=== PATIENT | male | born 1955 | race Caucasian/White ===

== ENCOUNTER 2017-01-24 10:57 | Inpatient (IN) | payer MEDICAID ==
[~2017-01-24] VITALS: Ht 162.6 cm; Wt 61.2 kg
[2017-01-24 11:19] VITALS: BP 149/79
[2017-01-24] MEDS ORDERED: ACETAMINOPHEN EXTRA STRENGTH 500 MG TAB PO ONE (11:55)
--- NOTE | 2017-01-24 12:20 | NUR ---
61/M BIB FAMILY c/o dysuria, pain to aleman insert site x20 days . PT STATED HAS Fever , chills x2 days. hx OF bph, dm, htn, BLIND. PT DENIES N/V/D; SKIN IS PINK/WARM/DRY; AAOX4 WITH EVEN AND STEADY GAIT; LUNGS CLEAR BL; HR EVEN AND REGULAR; PT DENIES ANY FEVER, CP, SOB, OR COUGH AT THIS TIME; PATIENT STATES PAIN OF 5/10 AT THIS TIME; PATIENT POSITIONED FOR COMFORT; HOB ELEVATED; BEDRAILS UP X2; BED DOWN. ER MD MADE AWARE OF PT STATUS.
[2017-01-24] MEDS ORDERED: NACL 0.9% 2,000 ML IV ONE (12:30)
[2017-01-24] MEDS ORDERED: cefTRIAXone 1,000 MG VIAL ONE (13:34)
[2017-01-24] MEDS ORDERED: NACL 0.9% 1,000 ML IV ONE (13:40)
--- NOTE | 2017-01-24 14:00 | NUR ---
AT 1400 REMOVED FOEY CATH NO16 & REPLACED POTTER CATH NEW ONE NO16 AT 1404
[2017-01-24] MEDS: NACL 0.9% 1,000 ML IV SCH (14:55)
--- NOTE | 2017-01-24 15:13 | NUR ---
GAVE REPORT TO JOSUE GONZALEZ
--- NOTE | 2017-01-24 15:13 | NUR ---
Patient will be admitted to care of DR ZEPEDA. Admited to TELE. Will go to [id number]. Belongings list completed. Report to JOSUE GONZALEZ.
--- NOTE | 2017-01-24 15:30 | NUR ---
Shirin price in [facility] - 01/24/17 at 1542 by MED1 CHANGE TO [place] 122B
--- NOTE | 2017-01-24 15:30 | NUR ---
CHANGE TO ROOM 122A
--- NOTE | 2017-01-24 15:30 | NUR ---
Shirin price in [facility] - 01/24/17 at 1544 by MED1 GONZALO Lerma
[2017-01-24 15:45] VITALS: BP 120/58
--- NOTE | 2017-01-24 15:45 | NUR ---
PT ARRIVED ON UNIT VIA GURNEY. PT IS AAOX4 AND SHOWS NO S/S OF DISTRESS. PT ON TELE MONITORING. PT AMB TO BED WITH STEADY GAIT. PT IS LEGALLY BLIND AND USES A CANE. SKIN IS INTACT. IV NOTED AT R AC 20 GAUGE PATENT AND INTACT. PT STATES NO PAIN. BED IS LOWERED, FLAT, AND WITH CALL LIGHT WITHIN REACH. WILL CONTINUE TO MONITOR.
[2017-01-24 16:27] VITALS: BP 120/58
[2017-01-24] MEDS ORDERED: LEVOFLOXACIN 750 MG/D5W PREMIX 150 ML IV SCH (17:25)
[2017-01-24] MEDS ORDERED: DEXTROSE 50% 50 ML SYR IVP PRN (17:30)
--- NOTE | 2017-01-24 17:30 | NUR ---
PT IS GETTING A CXR DONE AT BEDSIDE. PT SHOWS NO S/S OF DISTRESS. WILL CONTINUE TO MONITOR.
--- NOTE | 2017-01-24 17:50 | NUR ---
PT BEING SEEN BY US TECH. PT SHOWS NO S/S OF DISTRESS. WILL CONTINUE TO MONITOR.
--- NOTE | 2017-01-24 19:15 | NUR ---
GAVE REPORT TO NIGHT NURSE. PT ENDORSED IN STABLE CONDITION.
--- NOTE | 2017-01-24 19:16 | NUR ---
RECEIVED REPORT FROM DAY RN FOR CONTINUITY OF CARE. PATIENT IS A&OX4, DISCUSSED PLAN OF CARE WITH PATIENT AND FAMILY MEMBERS AT BEDSIDE, VERBALIZED UNDERSTANDING. SHIFT ASSESSMENT DONE, VS TAKEN, TEMP NOTED AT 100.7, WILL ADMINISTER TYLENOL. NO S/S OF RESPIRATORY DISTRESS NOTED ON ROOM AIR. PATIENT DENIES PAIN. IV TO RT FA 20 GAUGE PATENT AND INFUSING FLUIDS WELL. POTTER CATHETER IN PLACE. SKIN INTACT. PATIENT IS LEGALLY BLIND. SAFETY/FALL PRECAUTIONS ENFORCED. CALL LIGHT WITHIN REACH. WILL CONTINUE TO MONITOR.
[2017-01-24 20:00] VITALS: BP 140/71
[2017-01-24] MEDS: ACETAMINOPHEN EXTRA STRENGTH 500 MG TAB PO PRN (20:09)
--- NOTE | 2017-01-24 20:09 | NUR ---
TEMP 100.7, ADMINISTERED TYLENOL PER MD ORDER AND IMPLEMENTED COOLING MEASURES.
[2017-01-24] MEDS: DOCUSATE SODIUM 100 MG GELCAP PO SCH (20:10)
[2017-01-24] MEDS: BLOOD GLUCOSE MONITORING 1 DEV DEV FS SCH (20:19)
[2017-01-24] MEDS: INSULIN LISPRO SLIDING SCALE 100 UNITS/ML VIAL SUBQ PRN (21:21)
--- NOTE | 2017-01-24 21:21 | NUR ---
BLOOD SUGAR 180, ADMINISTERED INSULIN PER MD ORDER. CALL LIGHT WITHIN REACH.
--- NOTE | 2017-01-24 23:44 | NUR ---
VS CHECKED, STABLE. CHANGED PT LINENS AND GOWN. CALL LIGHT WITHIN REACH. WILL CONTINUE TO MONITOR.
[2017-01-25] VITALS: BP 124/67
--- NOTE | 2017-01-25 01:56 | NUR ---
PT IS SLEEPING, NO S/S OF DISTRESS OR DISCOMFORT NOTED. WILL CONTINUE TO MONITOR.
[2017-01-25] MEDS: NACL 0.9% 1,000 ML IV SCH ×3 (02:35→21:12)
[2017-01-25 04:00] VITALS: BP 148/78
--- NOTE | 2017-01-25 04:07 | NUR ---
VS TAKEN, STABLE. EMPTIED POTTER CATH BAG 1300 ML DARK YELLOW URINE. WILL CONTINUE TO MONITOR.
[2017-01-25] MEDS: BLOOD GLUCOSE MONITORING 1 DEV DEV FS SCH ×4 (06:25→20:18)
[2017-01-25] MEDS: ACETAMINOPHEN EXTRA STRENGTH 500 MG TAB PO PRN (06:36)
--- NOTE | 2017-01-25 06:36 | NUR ---
PATIENTS TEMPERATURE TAKEN 101.2, ADMINISTERED, TYLENOL PER MD ORDER. COOLING MEASURES IMPLEMENTED.
--- NOTE | 2017-01-25 07:30 | NUR ---
ENDORSED PATIENT TO DAY RN FOR CONTINUITY OF CARE, PATIENT IS IN STABLE CONDITION.
--- NOTE | 2017-01-25 07:31 | NUR ---
REPORT RECEIVED FROM CAMP PROGRAM DIRECTOR NURSE, PT SLEEPING QUIETLY, RESP EVEN UNLABORED IN NAD, SKIN COLOR WNL, DENIES PAIN OR DISCOMFORT, NO IMMEDIATE NEEDS AT THIS TIME, IV INFUSING WELL SITE CLEAR AT RIGHT AC, CALL ZAMBRANO WITHIN REACH, SAFETY MEASURES IN PLACE, WILL CONTINUE TO MONITOR.
[2017-01-25 08:00] VITALS: BP 136/73
--- NOTE | 2017-01-25 08:06 | NUR ---
PATIENT HAS BEEN SCREENED AND CATEGORIZED HIGH NUTRITION RISK. PATIENT WILL BE SEEN WITHIN 1-2 DAYS OF ADMISSION. 01/25/17-01/26/[address]
[2017-01-25] MEDS: DOCUSATE SODIUM 100 MG GELCAP PO SCH ×2 (08:30→20:18)
[2017-01-25] MEDS ORDERED: PIPER/TAZO 3.375GM/D5W PREMIX 50 ML IV SCH (09:00)
[2017-01-25] MEDS ORDERED: BENZOCAINE/MENTHOL 1 LOZ MM PRN (10:10)
--- NOTE | 2017-01-25 10:27 | NUR ---
PT RESTING QUIETLY, RESP EVEN UNLABORED ON ROOM AIR IN NAD, NO C/O PAIN OR DISCOMFORT, VOICES NO IMMEDIATE NEEDS, IVF INFUSING WELL SITE CLEAR, POTTER DRAINING DARK YELLOW URINE, CALL ZAMBRANO IN HAND, SAFETY MEASURES IN PLACE, WILL CONTINUE TO MONITOR
--- NOTE | 2017-01-25 11:52 | NUR ---
01/25/17 RD INITIAL ASSESSMENT COMPLETED PLEASE REFER TO NUTRITION ASSESSMENT UNDER CARE ACTIVITY FOR ESTIMATED NUTRITIONAL NEEDS. RD RECOMMENDATIONS: 1. WHEN MEDICALLY FEASIBLE, INITIATE PO DIET TO START ON CLEAR LIQUIDS AND ADVANCE TOLERATED TO 75G CCHO/MEAL DIET 2. RD WILL F/U 3-5 DAYS; MODERATE. ERNIE CHIU RD
[2017-01-25 12:00] VITALS: BP 133/66
--- NOTE | 2017-01-25 14:02 | NUR ---
DR WHEATLEY AT BEDSIDE FOR EVAL, ATTEMPTED TO GET MEDICATION LIST FROM DAUGHTER MYRA, DAUGHTER NOT ABLE TO PROVIDE FULL LIST AND DOSE OF MEDS AT THIS TIME ON THE PHONE, ASKED PT TO BRING IN HOME MEDICATIONS WHEN SHE VISITS THIS AFTERNOON. PT RESTING QUIETLY IN NAD, DENIES ANY PAIN OR DISCOMFORT, RESP EVEN UNLABORED, SKIN WARM DRY, POTTER DRAINING WELL, CALL ZAMBRANO WITHIN REACH, SAFETY MEASURES IN PLACE, WILL CONTINUE TO MONITOR
[2017-01-25 16:00] VITALS: BP 141/69
--- NOTE | 2017-01-25 18:00 | NUR ---
UROLOGY MD TO BEDSIDE FOR EVAL, PT OK TO START PO DIET, CCHO DIET ORDERED BY DR WHEATLEY, PT MADE AWARE OF DIET CHANGE, DIETARY CALLED FOR LATE DINNER TRAY. PT REMAINS COMFORTABLE, RESP EVEN UNLABORED IN NAD ON ROOM AIR, IVF INFUSING WELL SITE CLEAR, POTTER DRAINING, CALL ZAMBRANO WITHIN REACH, SAFETY MEASURES IN PLACE, WILL CONTINUE TO MONITOR
--- NOTE | 2017-01-25 19:30 | NUR ---
REPORT GIVEN TO CLICKING MACHINE OPERATOR, PT IN STABLE CONDITION
--- NOTE | 2017-01-25 19:30 | NUR ---
RECEIVED REPORT FROM DAY RN AT BEDSIDE, PATIENT RESTING IN BED, AAO X4 ON ROOM AIR, NO SOB OR SIGN OF DISTRESS. PATIENT IS LEGALLY BLIND, SAFETY MEASURES CHECKED, IV TO RIGHT AC PATENT AND INTACT WITH IVF INFUSING WELL. POTTER PRESENT WITH LIGHT ANDREW URINE. PATIENT BEING ASSISTED TO EAT BY FAMILY MEMBERS. SKIN INTACT. DISCUSSED PLAN OF CARE WITH PATIENT, PATIENT VERBALIZED UNDERSTANDING, CALL LIGHT WITHIN REACH. WILL CONTINUE TO MONITOR.
[2017-01-25 20:00] VITALS: BP 140/77
[2017-01-25] MEDS: MORPHINE SULFATE 2 MG/ML SYR IVP PRN (20:18)
[2017-01-25] MEDS: PIPER/TAZO 3.375GM/D5W PREMIX 50 ML IV SCH (20:19)
--- NOTE | 2017-01-25 20:30 | NUR ---
PM MEDS ADMINISTERED, PATIENT TOLERATED WELL, PT C/O LOWER ABDOMINAL PAIN, ADMINISTERED MORPHINE PER MD ORDER, CALL LIGHT WITHIN REACH. WILL CONTINUE TO MONITOR.
[2017-01-25] MEDS: INSULIN LISPRO SLIDING SCALE 100 UNITS/ML VIAL SUBQ PRN (21:13)
--- NOTE | 2017-01-25 22:30 | NUR ---
PATIENT SLEEPING, NO SOB OR SIGN OF DISTRESS AT THIS TIME, CALL LIGHT WITHIN REACH. WILL CONTINUE TO MONITOR.
[2017-01-26] VITALS: BP 120/66
--- NOTE | 2017-01-26 00:20 | NUR ---
VITAL SIGNS STABLE, NO SOB OR SIGN OF DISTRESS AT THIS TIME, CALL LIGHT WITHIN REACH. WILL CONTINUE TO MONITOR.
--- NOTE | 2017-01-26 02:20 | NUR ---
PATIENT SLEEPING, NO SOB OR SIGN OF DISTRESS AT THIS TIME, CALL LIGHT WITHIN REACH. WILL CONTINUE TO MONITOR.
[2017-01-26 04:00] VITALS: BP 132/71
--- NOTE | 2017-01-26 04:00 | NUR ---
VIAL SIGNS STABLE, NO SOB OR SIGN OF DISTRESS, CALL LIGHT WITHIN REACH. WILL CONTINUE TO MONITOR.
[2017-01-26] MEDS ORDERED: ASPIRIN81 M1 PO (04:40)
[2017-01-26] MEDS ORDERED: AMLODIPINE10 M1 PO (04:40)
[2017-01-26] MEDS ORDERED: LIPITOR80 MG PO (04:40)
[2017-01-26] MEDS ORDERED: VITAMIN D50000 I4 PO (04:40)
[2017-01-26] MEDS ORDERED: FINASTERIDE5 M1 PO (04:40)
[2017-01-26] MEDS ORDERED: TAMSULOSIN HCL0.4 MG PO (04:40)
[2017-01-26] MEDS ORDERED: MACROBID100 M1 PO (04:40)
[2017-01-26] MEDS ORDERED: GLUCOTROL5 MG PO (04:40)
[2017-01-26] MEDS: NACL 0.9% 1,000 ML IV SCH ×3 (05:11→21:24)
[2017-01-26] MEDS: PIPER/TAZO 3.375GM/D5W PREMIX 50 ML IV SCH ×3 (05:11→21:03)
[2017-01-26] MEDS: BLOOD GLUCOSE MONITORING 1 DEV DEV FS SCH ×4 (06:35→21:06)
--- NOTE | 2017-01-26 07:27 | NUR ---
ENDORSED PATIENT TO DAY RN AT BEDSIDE, PATIENT IN STABLE CONDITION
--- NOTE | 2017-01-26 07:29 | NUR ---
RECEIVED REPORT FROM JOSUE DURAND. PT IS SLEEPING IN BED, BUT EASILY AWAKEN, PT IS A/OX4, PT IS BLIND, BOTH EYES, SKIN IS INTACT, IV IS ON THE LEFT AC, PATENT, INTACT, FLUSHING WELL, INITIAL ASSESSMENT DONE, PT HAS POTTER CATHETER IS IN PLACE, NO S/S OF RESPIRATORY DISTRESS OR DISCOMFORT NOTED, DISCUSSED PLAN OF CARE WITH PT, PT VERBALIZED UNDERSTANDING, CALL LIGHT IS WITHIN REACH, WILL CONTINUE TO MONITOR.
[2017-01-26 08:00] VITALS: BP 148/79
[2017-01-26] MEDS: MORPHINE SULFATE 2 MG/ML SYR IVP PRN (09:48)
[2017-01-26] MEDS: DOCUSATE SODIUM 100 MG GELCAP PO SCH ×2 (09:48→20:51)
[2017-01-26] MEDS: INSULIN LISPRO SLIDING SCALE 100 UNITS/ML VIAL SUBQ PRN ×3 (11:59→21:07)
[2017-01-26 12:00] VITALS: BP 140/73
[2017-01-26] MEDS ORDERED: PHENAZOPYRIDINE 100 MG TAB PO SCH (12:00)
[2017-01-26 16:00] VITALS: BP 148/76
--- NOTE | 2017-01-26 19:30 | NUR ---
Patient's Plan of Care was discussed and reviewed with MEDICAL INSTRUMENT TECHNICIAN: CHICHI
--- NOTE | 2017-01-26 19:35 | NUR ---
ENDORSED PT TO LVN. JORGE LUIS FOR CONTINUITY OF CARE. PT STABLE AT THIS TIME, IS AT BEDSIDE.
--- NOTE | 2017-01-26 19:36 | NUR ---
RECD. RESTING IN BED, AWAKE, A/OX4. RESPIRATION EVEN AND UNLABORED. IV OF NS AT 140 ML/HR INFUSING, RIGHT AC G 20. LEGALLY BLIND, BUT ABLE TO USE CALL LIGHT, INSTRUCTED TO CALL NURSE WHEN NEEDING HELP. PLAN OF CARE FOR THE SHIFT DISCUSSED. VERBALIZED UNDERSTANDING. F/C PATENT DRAINING YELLOWISH, PINK URINE. ON BILATERAL LEG SEQUENTIALS. SAFETY MEASURES ENFORCED. DENIES PAIN 0/10.
[2017-01-26] MEDS: PHENAZOPYRIDINE 100 MG TAB PO SCH (20:50)
--- NOTE | 2017-01-26 21:00 | NUR ---
REFUSED SNACK FOR THE NIGHT.
[2017-01-27] VITALS: BP 135/72
[2017-01-27] MEDS: MORPHINE SULFATE 2 MG/ML SYR IVP PRN (04:33)
[2017-01-27] MEDS: NACL 0.9% 1,000 ML IV SCH ×2 (04:33→11:42)
[2017-01-27] MEDS: PIPER/TAZO 3.375GM/D5W PREMIX 50 ML IV SCH ×2 (06:00→12:34)
[2017-01-27] MEDS: BLOOD GLUCOSE MONITORING 1 DEV DEV FS SCH ×3 (06:56→17:17)
[2017-01-27] MEDS: INSULIN LISPRO SLIDING SCALE 100 UNITS/ML VIAL SUBQ PRN ×3 (06:58→17:19)
--- NOTE | 2017-01-27 07:00 | NUR ---
CONDITION REMAIN STABLE. SAFETY MAINTAINED DURING SHIFT. WILL ENDORSE TO AM NURSE FOR CONTINUITY OF CARE.
--- NOTE | 2017-01-27 07:30 | NUR ---
RECEIVED REPORT FROM NIGHT NURSE. PT AOX4, GERMAN SPEAKING, ABLE TO VERBALIZE NEEDS, PT LEGALLY BLIND. NO CP, SOB OR S/S OF ACUTE DISTRESS. PT DENIES PAIN AT THIS TIME, STATES DYSURIA, REFUSING PAIN MEDS AT THIS TIME. POTTER CATH IN PLACE, DRAINING CLEAR ORANGE URINE. INITIAL ASSESSMENT COMPLETED. IV ACCESS ASYMPTOMATIC, PATENT AND INTACT. IVF INFUSING WELL. DISCUSSED AND REVIEWED PLAN OF CARE WITH PT. PT VERBALIZES UNDERSTANDING. SAFETY MEASURES ENSURED. CALL LIGHT WITHIN REACH. WILL CONTINUE TO MONITOR.
[2017-01-27 08:00] VITALS: BP 141/78
[2017-01-27] MEDS: DOCUSATE SODIUM 100 MG GELCAP PO SCH (09:31)
[2017-01-27] MEDS: PHENAZOPYRIDINE 100 MG TAB PO SCH (09:31)
--- NOTE | 2017-01-27 09:33 | NUR ---
MEDICATIONS ADMINISTERED WITH EDUCATION, PT VERBALIZES UNDERSTANDING. PT TOLERATED MEDS WELL. IVF INFUSING WELL. PHYSICAL THERAPY WITH PT AT THIS TIME, PT AMBULATING WELL WITH CANE AND GAIT BELT, MINIMAL ASSISTANCE WITH 1 PERSON ASSIST AND 1 PERSON STANDBY. SAFETY MEASURES ENSURED.
--- NOTE | 2017-01-27 12:34 | NUR ---
MEDICATION ADMINISTERED WITH EDUCATION, PT VERBALIZES UNDERSTANDING. IVF INFUSING WELL. SAFETY MEASURES ENSURED. CALL LIGHT WITHIN REACH. ALL NEEDS MET. WILL CONTINUE TO MONITOR.
[2017-01-27 16:00] VITALS: BP 146/86
[2017-01-27] MEDS ORDERED: PHENAZOPYRIDIN100 M1 PO (16:23)
[2017-01-27] MEDS ORDERED: FLORASTOR250 MG PO (16:23)
[2017-01-27] MEDS ORDERED: BLOOD LANCETS1 EACH MC (16:23)
[2017-01-27] MEDS ORDERED: BLOOD GLUCOSE1 EACH FS (16:23)
[2017-01-27] MEDS ORDERED: BLOOD GLUCOSE MC (16:23)
[2017-01-27] MEDS ORDERED: HUMALOG SL100 UNITS/ SUBQ (16:23)
[2017-01-27] MEDS ORDERED: GLUCOTROL XL10 M1 PO (16:23)
[2017-01-27] MEDS ORDERED: CIPRO500 MG PO (16:23)
--- NOTE | 2017-01-27 17:19 | NUR ---
MEDICATION ADMINISTERED WITH EDUCATION, PT VERBALIZES UNDERSTANDING. IVF INFUSING WELL. SAFETY MEASURES ENSURED. CALL LIGHT WITHIN REACH. ALL NEEDS MET. WILL CONTINUE TO MONITOR.
--- NOTE | 2017-01-27 17:53 | NUR ---
PT'S AND DAUGHTER AT BEDSIDE. DISCUSSED AND REVIEWED DISCHARGE INSTRUCTIONS WITH PT. PT VERBALIZES UNDERSTANDING. IV ACCESS REMOVED, CANNULA INTACT. PT TOLERATED WELL. POTTER CATH LEFT IN PLACE, PER MD ORDERS. POTTER EMPTIED, DRAINING CLEAR YELLOW URINE. CONDITION STABLE. PT'S DAUGHTER ASSISTING PT WITH DINNER. BELONGINGS CHECKED. SAFETY MEASURES ENSURED.
--- NOTE | 2017-01-27 18:23 | NUR ---
PT DISCHARGED, AMBULATING WITH CANE AND PT'S DAUGHTER ASSISTING PER PT'S REQUEST, REFUSES TO USE WHEELCHAIR. STEADY GAIT NOTED. CONDITION STABLE.
== END 2017-01-27 18:23 | disposition home or self-care (01) | DRG 720 ==
LOC: MED 10:57 → MTU 14:54
PROVIDERS: ADMIT Family Medicine; ATTEND Family Medicine
DX: A41.89 Other specified sepsis (principal); N17.0 Acute kidney failure with tubular necrosis; E43 Unspecified severe protein-calorie malnutrition; N39.0 Urinary tract infection, site not specified; R65.20 Severe sepsis without septic shock; I10 Essential (primary) hypertension; N40.1 Benign prostatic hyperplasia with lower urinary tract symptoms; E78.5 Hyperlipidemia, unspecified; M62.50 Muscle wasting and atrophy, not elsewhere classified, unspecified site; R74.0 Nonspecific elevation of levels of transaminase and lactic acid dehydrogenase [LDH]; H54.0 Blindness, both eyes; E11.65 Type 2 diabetes mellitus with hyperglycemia; B96.5 Pseudomonas (aeruginosa) (mallei) (pseudomallei) as the cause of diseases classified elsewhere; N40.0 Benign prostatic hyperplasia without lower urinary tract symptoms; E78.00 Pure hypercholesterolemia, unspecified; N12 Tubulo-interstitial nephritis, not specified as acute or chronic; Z56.0 Unemployment, unspecified; Z68.23 Body mass index [BMI] 23.0-23.9, adult

== ENCOUNTER 2021-11-27 17:21 | Inpatient (IN) | payer MEDICAID, SELFPAY ==
[~2021-11-27] VITALS: Ht 175.3 cm; Wt 72.6 kg
[~2021-11-27 17:21] MED LIST: AMLO10TA89 PO; ASPI-1822 PO; BLOO1EAC85 MC; BLOO1STR56 FS; CIPR500T4 PO; ERGO500028 PO; FINA5TAB5 PO; FLOR250 PO; GLIP10TE PO; HUMSLIDE SUBQ; LANC-947 MC; LIP80 PO; PHEN-1901 PO; TAMS0.4C97 PO
--- NOTE | 2021-11-27 17:22 | NUR ---
Óscar HAWKINS via gurney to bed 09.
[2021-11-27 17:25] VITALS: BP 188/72
--- NOTE | 2021-11-27 17:42 | NUR ---
RECEIVED FROM CAREGIVER. PHONE NUMBER PROVIDED. JOHNNIE [phone]
--- NOTE | 2021-11-27 17:46 | NUR ---
XRAY AT BEDSIDE
--- NOTE | 2021-11-27 18:00 | NUR ---
IN AND OUT CATHETER PROCEDURE PERFORMED TO COLLECT URINE
--- NOTE | 2021-11-27 18:34 | NUR ---
66 Y/O MALE PATIENT ROSS PRESENTS TO ED WITH C/O ALOC X 2 DAYS. EMS REPORTS PT MISSED DIALYSIS X 1 MONTH [facility] IS NOT DOING ANYTHING FOR HIM TO FEEL BETTER. PT IS A&O X 3. RESPIRATIONS ARE EVEN AND UNLABORED, UNABLE TO ASSESS GAIT, BS 107, 18 G R AC. PMEDHX: RENAL FAILURE, HTN, HIGH CHOLESTEROL NKDA
[2021-11-27 18:44] LABS: BASOPHILS % (AUTO) 0.4 % (0.0-2.0); EOSINOPHILS # (AUTO) 0.1 K/uL (0-0.4); HEMOGLOBIN 8.7 g/dL (12.0-18.0); LYMPHOCYTES # (AUTO) 0.7 K/uL (2.0-11.5); LYMPHOCYTES % (AUTO) 7.7 % (20.5-51.1); MEAN CORPUSCULAR HEMOGLOBIN 29 pg (27-31); MEAN CORPUSCULAR HGB CONC 32 g/dL (33-37); MEAN CORPUSCULAR VOLUME 89.2 fL (80-94); MONOCYTES # (AUTO) 0.6 K/uL (0.8-1.0); MONOCYTES % (AUTO) 6.6 % (1.7-9.3); NEUTROPHILS # (AUTO) 8.2 K/uL (1.8-7.7); NEUTROPHILS % (AUTO) 84.3 % (42.2-75.2); PLATELET COUNT (AUTO) 160 K/uL (140-450); RED BLOOD CELL COUNT(AUTO) 3.03 MIL/uL (4.20-6.10); RED CELL DISTRIBUTION WIDTH 14.3 % (11.6-13.7); WHITE BLOOD COUNT (AUTO) 9.8 K/uL (4.8-10.8)
--- NOTE | 2021-11-27 18:49 | NUR ---
PATIENT TAKEN TO CT VIA CEDRICK
[2021-11-27 19:00] LABS: ANION GAP 31.2 (8-16)
[2021-11-27 19:07] LABS: POTASSIUM 6.9 mmol/L (3.5-5.1)
[2021-11-27 19:08] LABS: CARBON DIOXIDE 9.7 mmol/L (21-32)
[2021-11-27 19:10] LABS: APPEARANCE,URINE CLOUDY (CLEAR); BILIRUBIN,URINE NEGATIVE (NEGATIVE); BLOOD, URINE 3+ (NEGATIVE); COLOR,URINE YELLOW (YELLOW); NITRITE, URINE NEGATIVE (NEGATIVE); UGLUCOSE NEGATIVE (NEGATIVE)
[2021-11-27] MEDS ORDERED: CALCIUM GLUC 1 GM/50 mL NS BAG 50 ML IV ONE (19:10)
[2021-11-27] MEDS ORDERED: DEXTROSE 50% 50 ML SYR IVP ONE (19:10)
[2021-11-27] MEDS ORDERED: SODIUM ZIRCONIUM CYCLOSILICATE 10 GM POWD.PACK PO ONE (19:10)
[2021-11-27] MEDS ORDERED: INSULIN REGULAR, HUMAN 100 UNIT/ML VIAL IVP ONE (19:10)
[2021-11-27 19:11] LABS: LEUKOCYTE ESTERASE ,URINE 3+ (NEGATIVE)
[2021-11-27 19:11] LABS: ALBUMIN 2.9 g/dL (3.4-5.0); ASPARTATE AMINOTRANSFERASE 17 U/L (15-37); BILIRUBIN,DIRECT 0.1 mg/dL (0.0-0.3); LIPASE 283 U/L (73-393); TOTAL BILIRUBIN 0.5 mg/dL (0.0-1.0)
--- NOTE | 2021-11-27 19:11 | NUR ---
CRITICAL LAB REPORT RECEIVED FROM ADARSH STATING: BUN 244 CREATININE 24.16 MACHINE UNABLE TO REGISTER VALUES INTO MACHINE D/T VALUES BEING OVER-LIMIT.
[2021-11-27 19:12] LABS: ACETAMINOPHEN < 0.5 ug/ml (10-30); SALICYLATE < 2.8 mg/dL (2.8-20.0)
--- NOTE | 2021-11-27 19:16 | NUR ---
CRTICAL LAB REPORT RECIEVED TROPONIN 0.128 ER AWARE
--- NOTE | 2021-11-27 19:18 | NUR ---
GARY ROWELL CALLED FOR UPDATE [phone] NOT CURRENTLY ON CONTACT LIST
[2021-11-27 19:21] LABS: BARBITURATE, URINE NEGATIVE ng/ml (NEG <=200); BENZODIAZEPINE, URINE NEGATIVE ng/mL (NEG <=200); CANNABINOID, URINE NEGATIVE ng/mL (NEG <=50); COCAINE, URINE NEGATIVE ng/mL (NEG <=300); OPIATE, URINE NEGATIVE ng/mL (NEG <=2000); PHENCYCLIDINE SCREEN,URINE NEGATIVE ng/mL (NEG <=25)
[2021-11-27 19:23] LABS: RBC,URINE TOO NUMEROUS TO COUN /HPF (0-5)
[2021-11-27 19:24] LABS: WBC,URINE TOO MANY TO COUNT /HPF (0-5)
--- NOTE | 2021-11-27 19:25 | NUR ---
HANDOFF REPORT GIVEN TO KAREN RN
[2021-11-27 19:29] LABS: CREATININE 20.1 mg/dL (0.6-1.3)
--- NOTE | 2021-11-27 20:19 | NUR ---
RECEIVED CALL FROM MD MURPHY AND GAVE AN ORDER TO DO A STAT DIALYSIS.
--- NOTE | 2021-11-27 20:38 | NUR ---
CALLED PATIENT'S JULIANNE FOR VERBAL CONSENT FOR STAT DIALYSIS ON PT. CHARGE QUINTON SALAS AWARE AND HEARD VERBAL CONSENT
--- NOTE | 2021-11-27 20:57 | NUR ---
Patient will be admitted to care of Jak PARIS. Admited to telemetry. Will go to room 113. Belongings list completed. Report to Altaf REDMOND.
[2021-11-27 21:27] VITALS: BP 159/73
[2021-11-27] MEDS ORDERED: DEXTROSE 50% 50 ML SYR IVP PRN (22:10)
--- NOTE | 2021-11-27 22:22 | NUR ---
Admitted from ED VIA GURNEY with chief complaint of ALOC. HEAD TO TOE ASSESSMENT DONE WITH JOSUE NOE. VSS. ON ROOM AIR WITH NO APPARENT S/SX OF ACUTE DISTRESS. PATIENT IS ON BEDREST. PATIENT IS INCONTINENT. PATIENT HAS AN IV TO THE RAC 18G SL. MRSA SWAB COLLECTED. PATIENT IS PUI PENDING PCR. PATIENT'S KELVIN IS NEGATIVE AND FULLY VACCINATED WITH MODERNA. PATIENT IS LEGALLY BLIND. PATIENT HAS LAV FISTULA. PROPER SIGNS OBSERVE. PATIENT HAS RIJ RUSLAN CATH. PINK BAND APPLIED. HD NURSE AT BEDSIDE. Oriented to call light, bed, phone,television, bathroom, smoking policy, visiting hours, procedures, AND ID bracelet on. Belongings list checked.
[2021-11-28] VITALS: BP 103/96
--- NOTE | 2021-11-28 00:13 | NUR ---
HD NURSE STILL AT BEDSIDE AT THIS TIME.
--- NOTE | 2021-11-28 00:45 | NUR ---
PATIENT IS S/P HD. PER HD NURSE IVAN, FLUID WAS NOT TAKEN OUT BECAUSE PATIENT IS DEHYDRATED. PRIMARY FOCUS OF TX IS TO CLEANSE BLOOD DUE TO HIGH POTASSIUM LEVEL. S/P VSS. WILL CONTINUE TO MONITOR.
--- NOTE | 2021-11-28 00:50 | NUR ---
ACCUCHECK 105. PATIENT IS ASYMPTOMATIC AND STABLE.
--- NOTE | 2021-11-28 02:10 | NUR ---
HEPARIN SODIUM 10,000 UNITS DOCUMENTED NON-ADMINISTERED. HD NURSE IVAN ADMINISTERED HEPARIN SODIUM 10,000 UNITS S/P DIALYSIS AT 0035.
--- NOTE | 2021-11-28 02:43 | NUR ---
CHECKED IF PATIENT IS SOILED WITH TILE CLASSIFIER KING. PATIENT IS CLEAN. PULL UPS AND GOWN CHANGED. REPOSITIONED FOR COMFORT. DENIES PAIN. RESPIRATIONS EVEN AND UNLABORED WITH NO APPARENT S/SX OF ACUTE DISTRESS. WHITE COMMUNICATION BOARD UPDATED. ALL SAFETY MEASURES IN PLACE. CALL LIGHT WITHIN REACH. WILL CONTINUE TO MONITOR.
[2021-11-28 04:00] VITALS: BP 144/61
--- NOTE | 2021-11-28 04:49 | NUR ---
PROVIDED PATIENT WITH WARM BLANKETS FOR COMFORT.
--- NOTE | 2021-11-28 05:37 | NUR ---
PATIENT IS AWAKE AND STABLE. DENIES PAIN. RESPIRATIONS EVEN AND UNLABORED WITH NO APPARENT S/SX OF ACUTE DISTRESS. ALL SAFETY MEASURES IN PLACE. CALL LIGHT WITHIN REACH. WILL CONTINUE TO MONITOR.
[2021-11-28] MEDS: BLOOD GLUCOSE MONITORING 1 DEV DEV FS SCH ×4 (06:44→20:40)
--- NOTE | 2021-11-28 07:02 | NUR ---
PATIENT HAS BEEN SCREENED AND CATEGORIZED HIGH NUTRITION RISK. PATIENT WILL BE SEEN WITHIN 1-2 DAYS OF ADMISSION. 11/28/21-11/29/21 TARA GAFFNEY MS, RDN
--- NOTE | 2021-11-28 07:03 | NUR ---
PATIENT HAS BEEN SCREENED AND CATEGORIZED HIGH NUTRITION RISK. PATIENT WILL BE SEEN WITHIN 1-2 DAYS OF ADMISSION. 11/28/21-11/29/21 TARA GAFFNEY MS, RDN
[2021-11-28 07:07] LABS: BASOPHILS % (AUTO) 0.2 % (0.0-2.0); EOSINOPHILS # (AUTO) 0.1 K/uL (0-0.4); EOSINOPHILS % (AUTO) 0.6 % (0.0-4.0); HEMATOCRIT 26.5 % (36-52); HEMOGLOBIN 9.2 g/dL (12.0-18.0); LYMPHOCYTES # (AUTO) 0.5 K/uL (2.0-11.5); LYMPHOCYTES % (AUTO) 5.4 % (20.5-51.1); MEAN CORPUSCULAR HEMOGLOBIN 30 pg (27-31); MEAN CORPUSCULAR HGB CONC 35 g/dL (33-37); MEAN CORPUSCULAR VOLUME 85.1 fL (80-94); MONOCYTES # (AUTO) 0.6 K/uL (0.8-1.0); MONOCYTES % (AUTO) 6.2 % (1.7-9.3); NEUTROPHILS # (AUTO) 8.4 K/uL (1.8-7.7); NEUTROPHILS % (AUTO) 87.6 % (42.2-75.2); PLATELET COUNT (AUTO) 151 K/uL (140-450); RED BLOOD CELL COUNT(AUTO) 3.12 MIL/uL (4.20-6.10); RED CELL DISTRIBUTION WIDTH 14.1 % (11.6-13.7); WHITE BLOOD COUNT (AUTO) 9.6 K/uL (4.8-10.8)
[2021-11-28] MEDS ORDERED: LORazepam 2 MG/ML VIAL IVP PRN (07:10)
[2021-11-28] MEDS ORDERED: ZOLPIDEM 10 MG TAB PO PRN (07:10)
[2021-11-28] MEDS ORDERED: DEXTROSE 50% 50 ML SYR IVP PRN (07:10)
[2021-11-28] MEDS ORDERED: ACETAMINOPHEN 325 MG TAB PO PRN (07:10)
[2021-11-28] MEDS ORDERED: MORPHINE SULFATE 2 MG/ML SYR IVP PRN (07:10)
[2021-11-28] MEDS ORDERED: DOCUSATE SODIUM 100 MG GELCAP PO PRN (07:10)
[2021-11-28] MEDS ORDERED: MAG SULF 2000 MG/WATER PREMIX 50 ML IV PRN (07:10)
[2021-11-28] MEDS ORDERED: ONDANSETRON 4 MG/2 ML VIAL IVP PRN (07:10)
[2021-11-28] MEDS ORDERED: POTASSIUM CHLORIDE 10 MEQ TABER PO PRN (07:10)
[2021-11-28] MEDS ORDERED: INSULIN LISPRO SLIDING SCALE 100 UNITS/ML VIAL SUBQ PRN (07:10)
--- NOTE | 2021-11-28 07:14 | NUR ---
ENDORSED PATIENT TO MORNING SHIFT NURSE FOR CONTINUITY OF CARE. PATIENT IS STABLE.
--- NOTE | 2021-11-28 07:15 | NUR ---
RECEIVED BEDSIDE REPORT FROM X [employer]AY [employer] WIRING TECHNICIAN NURSE FOR CONTINUITY OF CARE. PT IS AWAKE, CONFUSED. A&OX2. ON RA WITH BREATHING UNLABORED. ON TELE MONITOR. SKIN IS WARM, DRY, AND INTACT. INCONTINENT OF THE BOWEL AND BLADDER. IV IS IN PLACE IN THE RIGHT AC 18 GAUGE. RIGHT IJ RUSLAN IN PLACE AND LEFT AV SHUNT. PT IS S/P HD. ANOTHER HD SCHEDULED TODAY. PT IS STABLE. WILL CONTINUE TO MONITOR.
[2021-11-28] MEDS ORDERED: BLOOD GLUCOSE MONITORING 1 DEV DEV FS SCH (07:30)
[2021-11-28 08:00] VITALS: BP 142/64
[2021-11-28 08:31] LABS: ALBUMIN 2.9 g/dL (3.4-5.0); ANION GAP 24.9 (8-16); CARBON DIOXIDE 18.6 mmol/L (21-32); POTASSIUM 4.5 mmol/L (3.5-5.1); TOTAL BILIRUBIN 0.6 mg/dL (0.0-1.0)
--- NOTE | 2021-11-28 09:00 | NUR ---
ATTEMPTED TO FEED PT BREAKFAST. PT CHEWED SAME BITE FOR EXTENDED PERIOD OF TIME. PT ATE 10% OF BREAKFAST. CALLED DIETARY AND ASKED TO ADD SHAKES AND CHANGE TO PUREE DIET.
--- NOTE | 2021-11-28 09:49 | NUR ---
(11/28/21) RD INITIAL ASSESSMENT COMPLETED PLEASE REFER TO NUTRITION ASSESSMENT UNDER CARE ACTIVITY FOR ESTIMATED NUTRITIONAL NEEDS. RD RECOMMENDATIONS: 1. CONTINUE RENAL DIET TOLERATED 2. RDN STARTED PT ON ONS NEPRO 1 CARTON AT EACH MEAL TID. THIS WILL PROVIDE ADDITIONAL 1275 KCAL, 57 GM PROTEIN TO HELP MEET EST NEEDS. 3. RDN PROVIDED RENAL DIET EDUCATION; PT MAY NEED REINFORCEMENT. 4. RD WILL F/U 3-5 DAYS; MODERATE RISK. TARA GAFFNEY, , RDN
--- NOTE | 2021-11-28 09:50 | NUR ---
PAGED DIALYSIS NURSE DMITRY. AWAITING FOR CALLBACK
[2021-11-28] MEDS: LACTOBACILLUS RHAMNOSUS GG 1 EACH CAP PO SCH (09:52)
[2021-11-28] MEDS: amLODIPine 5 MG TAB PO SCH (09:52)
[2021-11-28] MEDS: ATORVASTATIN 80 MG TAB PO SCH (09:52)
[2021-11-28] MEDS: TAMSULOSIN 0.4 MG CAP PO SCH (09:53)
[2021-11-28] MEDS: ASPIRIN 81 MG TAB.CHEW PO SCH (09:53)
[2021-11-28] MEDS: FINASTERIDE 5 MG TAB PO SCH (09:53)
--- NOTE | 2021-11-28 11:00 | NUR ---
RECEIVED CALL BACK FROM NURSE DMITRY AND SHE STATED IVAN WILL BE HERE TO DO DIALYSIS TODAY.
--- NOTE | 2021-11-28 11:22 | NUR ---
PT IS SLEEPING IN SEMI FOWLERS POSITION. OPENS EYES WHEN CALLED BY NAME. MINIMAL RESPONSES NOTED. ANSWERS YES OR NO TO QUESTIONS. PT STARING STRAIGHT WITH MINIMAL ACTIVITY. NO DISTRESS NOTED. IV IS PATENT AND INTACT. WILL CONTINUE TO MONITOR.
[2021-11-28 12:00] VITALS: BP 127/70
--- NOTE | 2021-11-28 12:00 | NUR ---
HD NURSE AT BEDSIDE TO PERFORM HD. VS ARE STABLE. PT DENIES PAIN OR ANY DISTRESS. WILL CONTINUE TO MONITOR.
--- NOTE | 2021-11-28 12:03 | NUR ---
P.T. NOTES HOLD P.T. EVAL DUE TO DIALYSIS.
--- NOTE | 2021-11-28 14:30 | NUR ---
HD STILL IN PROGRESS. PT TOLERATING WELL. PT STILL CONFUSED WITH ALTERED MENTATION. ONLY ANSWERS YES OR NO TO QUESTIONS. UNABLE TO TELL ME NAME OR BIRTHDAY. NO DISTRESS NOTED. WILL CONTINUE TO MONITOR.
[2021-11-28 16:00] VITALS: BP 130/56
--- NOTE | 2021-11-28 16:45 | NUR ---
HD COMPLETE AND 500 ML REMOVED. PT TOLERATED THIS WELL. VS ARE STABLE. BREATHING UNLABORED. ON TELE MONITOR. WILL CONTINUE TO MONITOR.
--- NOTE | 2021-11-28 17:40 | NUR ---
RIGHT CHEST TUNNELED PERMACATH REMOVED PER DR. OROZCO'S ORDER BY DR. OLMOS. NO ANESTHETIC USED IN PROCEDURE. PRESSURE APPLIED WITH GAUZE AND TAPE. NO BLEEDING NOTED. CONSENT PROVIDED BY FAMILY MEMBER IN CHART LISTED.
--- NOTE | 2021-11-28 18:59 | NUR ---
PT IS STABLE. NO BLEEDING NOTED AT THE RIGHT CHEST WHERE THE DIALYSIS CATH WAS REMOVED. PT DOES NOT APPEAR TO BE IN ANY DISTRESS. ATTEMPTED TO WAKE PT TO FEED DINNER BUT HE IS VERY LETHARGIC. PT IS BACK TO SLEEP.
--- NOTE | 2021-11-28 19:23 | NUR ---
ENDORSED PT TO PICKLE CUTTER NURSE FOR CONTINUITY OF CARE. PT IS STABLE. PLAN OF CARE DISCUSSED.
[2021-11-28 20:00] VITALS: BP 136/60
[2021-11-29] VITALS (7 sets, daily range): BP systolic 128–160; BP diastolic 56–74
[2021-11-29] MEDS: BLOOD GLUCOSE MONITORING 1 DEV DEV FS SCH ×4 (06:40→20:55)
[2021-11-29 07:09] LABS: BASOPHILS % (AUTO) 0.4 % (0.0-2.0); EOSINOPHILS % (AUTO) 0.4 % (0.0-4.0); HEMATOCRIT 23.6 % (36-52); HEMOGLOBIN 8.2 g/dL (12.0-18.0); LYMPHOCYTES # (AUTO) 0.9 K/uL (2.0-11.5); LYMPHOCYTES % (AUTO) 13.8 % (20.5-51.1); MEAN CORPUSCULAR HEMOGLOBIN 29 pg (27-31); MEAN CORPUSCULAR HGB CONC 35 g/dL (33-37); MEAN CORPUSCULAR VOLUME 84.7 fL (80-94); MONOCYTES # (AUTO) 0.9 K/uL (0.8-1.0); MONOCYTES % (AUTO) 14.2 % (1.7-9.3); NEUTROPHILS # (AUTO) 4.7 K/uL (1.8-7.7); NEUTROPHILS % (AUTO) 71.2 % (42.2-75.2); PLATELET COUNT (AUTO) 136 K/uL (140-450); RED BLOOD CELL COUNT(AUTO) 2.79 MIL/uL (4.20-6.10); RED CELL DISTRIBUTION WIDTH 13.9 % (11.6-13.7); WHITE BLOOD COUNT (AUTO) 6.6 K/uL (4.8-10.8)
--- NOTE | 2021-11-29 07:15 | NUR ---
RECEIVED BEDSIDE REPORT FROM MANAGER WATER WASTEWATER NURSE FOR CONTINUITY OF CARE. PT IS AWAKE AND CONFUSED. VERY LETHARGIC. ON RA WITH BREATHING UNLABORED. ON TELE MONITOR. PT IS INCONTINENT OF THE BOWEL AND BLADDER. DECREASED APPETITE NOTED. SKIN IS WARM, DRY, AND INTACT. IV IS IN THE RIGHT AC 18 GAUGE SALINE LOCKED. DIALYSIS SHUNT IN PLACE IN THE LEFT UPPER ARM. PT STABLE. PLAN OF CARE DISCUSSED.
[2021-11-29 07:21] LABS: MAGNESIUM 1.8 mg/dL (1.8-2.4); PHOSPHORUS 6.4 mg/dL (2.5-4.9)
[2021-11-29 07:47] LABS: ANION GAP 16.2 (8-16); CARBON DIOXIDE 25.7 mmol/L (21-32); POTASSIUM 3.9 mmol/L (3.5-5.1)
[2021-11-29 07:51] LABS: CREATININE 8.4 mg/dL (0.6-1.3)
[2021-11-29] MEDS: LACTOBACILLUS RHAMNOSUS GG 1 EACH CAP PO SCH (08:25)
[2021-11-29] MEDS: ASPIRIN 81 MG TAB.CHEW PO SCH (08:26)
[2021-11-29] MEDS: TAMSULOSIN 0.4 MG CAP PO SCH (08:26)
[2021-11-29] MEDS: amLODIPine 5 MG TAB PO SCH (08:26)
[2021-11-29] MEDS: FINASTERIDE 5 MG TAB PO SCH (08:26)
[2021-11-29] MEDS: ATORVASTATIN 80 MG TAB PO SCH (08:26)
--- NOTE | 2021-11-29 09:30 | NUR ---
IV WAS PULLED OUT BY PT. BLEEDING CONTROLLED. NEW IV PLACED ON THE RIGHT FOREARM 20 GAUGE. ABX INFUSING. IV IS PATENT AND INTACT, BLOOD RETURN NOTED. PT TOLERATED THIS FAIRLY. INSTRUCTED PT NOT TO PULL OUT IV DUE TO RISK FOR INFECTION. PT REFUSED TO RESPOND.
--- NOTE | 2021-11-29 12:00 | NUR ---
PT IS SLEEPING WITH BLANKET OVER HEAD. WHEN TRYING TO PULL DOWN THE BLANKET TO TALK TO PATIENT HE STATED DON'T BOTHER ME. PT NOT ANSWERING QUESTIONS. IV IS STILL INTACT. NO DISTRESS NOTED. CHEST RISE AND FALL SYMMETRICAL. PT BACK TO SLEEP.
--- NOTE | 2021-11-29 15:00 | NUR ---
PT IS LAYING IN SEMI FOWLERS POSITION. BREATHING UNLABORED ON RA. NO DISTRESS NOTED. PT DOES NOT WANT TO ANSWER QUESTIONS. MORE BLANKETS WERE PROVIDED. WILL CONTINUE TO MONITOR.
--- NOTE | 2021-11-29 17:48 | NUR ---
PT IS STABLE. NO DISTRESS AT THIS TIME. VS ARE STABLE. WILL CONTINUE TO MONITOR.
--- NOTE | 2021-11-29 19:25 | NUR ---
ENDORSED PT TO VAN OWNER OPERATOR NURSE FOR CONTINUITY OF CARE. PT IS STABLE. PLAN OF CARE DISCUSSED.
[2021-11-29] MEDS: INSULIN LISPRO SLIDING SCALE 100 UNITS/ML VIAL SUBQ PRN (21:09)
--- NOTE | 2021-11-29 23:10 | NUR ---
HD NURSE IS AWARE OF HD FOR TOMORROW 11/30/21.
[2021-11-30] VITALS: BP 147/62
[2021-11-30 04:00] VITALS: BP 138/81
[2021-11-30] MEDS: BLOOD GLUCOSE MONITORING 1 DEV DEV FS SCH ×4 (06:26→20:31)
[2021-11-30 06:33] LABS: BASOPHILS % (AUTO) 0.5 % (0.0-2.0); EOSINOPHILS # (AUTO) 0.1 K/uL (0-0.4); EOSINOPHILS % (AUTO) 0.9 % (0.0-4.0); HEMATOCRIT 23.2 % (36-52); LYMPHOCYTES # (AUTO) 0.7 K/uL (2.0-11.5); LYMPHOCYTES % (AUTO) 9.8 % (20.5-51.1); MEAN CORPUSCULAR HEMOGLOBIN 29 pg (27-31); MEAN CORPUSCULAR HGB CONC 35 g/dL (33-37); MEAN CORPUSCULAR VOLUME 84.6 fL (80-94); MONOCYTES % (AUTO) 13.9 % (1.7-9.3); NEUTROPHILS # (AUTO) 5.2 K/uL (1.8-7.7); NEUTROPHILS % (AUTO) 74.9 % (42.2-75.2); PLATELET COUNT (AUTO) 151 K/uL (140-450); RED BLOOD CELL COUNT(AUTO) 2.74 MIL/uL (4.20-6.10); RED CELL DISTRIBUTION WIDTH 13.5 % (11.6-13.7)
[2021-11-30] MEDS: INSULIN LISPRO SLIDING SCALE 100 UNITS/ML VIAL SUBQ PRN ×2 (06:48→21:43)
[2021-11-30 07:07] LABS: ANION GAP 13.6 (8-16); CARBON DIOXIDE 29.3 mmol/L (21-32); POTASSIUM 3.9 mmol/L (3.5-5.1)
[2021-11-30 07:08] LABS: CREATININE 9.8 mg/dL (0.6-1.3)
--- NOTE | 2021-11-30 07:30 | NUR ---
RECEIVED REPORT FROM PM SHIFT FOR CONTINUITY OF CARE, PT AOX1, VSS, TOLERATING RA, SAFETY MEASURES MAINTAINED, CALL LIGHT WITHIN REACH, WILL CONTINUE TO MONITOR
[2021-11-30 08:00] VITALS: BP 156/59
[2021-11-30] MEDS: amLODIPine 5 MG TAB PO SCH (08:40)
[2021-11-30] MEDS ORDERED: EPOETIN ALFA-EPBX 4,000 UNITS/ML VIAL SUBQ SCH (09:00)
[2021-11-30] MEDS: LACTOBACILLUS RHAMNOSUS GG 1 EACH CAP PO SCH (09:40)
[2021-11-30] MEDS: TAMSULOSIN 0.4 MG CAP PO SCH (09:40)
[2021-11-30] MEDS: ATORVASTATIN 80 MG TAB PO SCH (09:41)
[2021-11-30] MEDS: FINASTERIDE 5 MG TAB PO SCH (09:41)
[2021-11-30] MEDS: ASPIRIN 81 MG TAB.CHEW PO SCH (09:41)
[2021-11-30] MEDS ORDERED: SULF-59 PO (10:29)
--- NOTE | 2021-11-30 10:55 | NUR ---
DC PLANNING: THE PATIENT PRESENTED TO THE ED FROM HOME WITH C/O ALOC X 2 DAYS. THE PATIENT HAS H/O HTN, DM AND ESRD WITH HD. THE PATIENT HAD NOT BEEN DIALYZED FOR A MONTH, FOLLOWED HERE BY NEPHROLOGY AND SURGERY, JHOAN GUZMAN ON 11/28 THE PATIENT HAS A WORKING AV FISTULA. CM SPOKE WITH THE PATIENTS DAUGHTER SORIN BY PHONE, CONFIRMED THE PATIENTS ADDRESS AND PHONE NUMBER PER HIS FACE SHEET. THE PATIENT LIVES WITH HIS DAUGHTER, SPOUSE AND SON IN [place] AND HAD BEEN GOING TO [facility] ON , AT 7:30 PM. FAMILY WAS TRANSPORTING HIM THEY ALL WORK DURING THE DAY UNTIL 6:30 PM. THE PATIENT AMBULATES VERY LITTLE, THE FAMILY LEAVES FOOD AND WATER ON A TABLE NEAR THE PATIENT WHILE THEY'RE GONE. HE WEARS ADULT PAMPERS WELL. THE PATIENT HAS BEEN REFUSING TO GO TO DIALYSIS FOR A MONTH AND HAS SPOKE WITH HIS NURSE AT THE DIALYSIS CENTER, THE ADITHYA HINTON AND HIS PROCESS ARCHITECT DR JOHN GORE, ALL EXPLAINED WHAT WOULD HAPPEN IF THE PATIENT STOPPED DIALYSIS AND HE STILL OPTED NOT TO CONTINUE. FAMILY BROUGHT HIM INTO THE ER ALTHOUGH HE DID NOT WANT TO COME. THE PATIENT HAS BEEN DC'D FROM THE DIALYSIS CENTER AND HIS DAUGHTER FROM [place] IS COMING TOMORROW TO STAY WITH HIM AND PROVIDE CARE. HE HAS RESTRICTED M/FCO SO POST ACUTE BENEFITS ARE NOT AVAILABLE. THE PATIENT WILL BE DIALYZED TODAY AND FAMILY WILL TRANSPORT HOME. CM WILL FOLLOW. Addendum: 11/30/21 at 1112 by Shira Carranza CM Amended: Links added. Addendum: 11/30/21 at 1225 by Shira Carranza CM DC PLANNING: ASTRID AND ADITHYA SPOKE WITH THE PATIENT AT BEDSIDE, IN [place], THE PATIENT STATES THAT HE WANTS TO CONTINUE DIALYSIS. ASTRID THEN SPOKE WITH [facility], CLINICAL PACKET FAXED TO THEM, HEP B ANTIGEN ORDERED. ASTRID ALSO SPOKE WITH DR MARTIN AND DR MATIAS TO ENDORSE PLAN MOVING FORWARD, MESSAGE LEFT FOR HIS DAUGHTER SORIN WELL. ASTRID WILL FOLLOW. Addendum: 11/30/21 at 1526 by Shira Carranza CM DC PLANNING: HEPATITIS PANEL PENDING, ASTRID SPOKE WITH DR OROZCO AND UPDATED HIM ON ARRANGEMENTS IN PROCESS. DR OROZCO ASKED ABOUT SENDING REFERRAL TO [facility] CHANGING DIALYSIS TIME TO FIRST SHIFT (4:00 AM), ASTRID ENDORSED THAT THE PATIENTS FAMILY WILL BE ASKED ABOUT BOTH OPTIONS. ASTRID SPOKE WITH [facility] ([phone]), THEY STATE THEY ARE TRYING TO SCHEDULE THE PATIENT FOR 1:00 PM BUT WON'T FINALIZE SCHEDULE WITHOUT HEP PANEL. ASTRID ALSO SPOKE WITH [facility] AND ENDORSED THAT FAMILY NEEDS TO AGREE TO CHANGE IN HD CENTER AND CHAIR TIME, CM LEFT VM WITH THE PATIENTS GARY ROWELL AND WILL WAIT FOR PERMISSION TO SEND INFORMATION TO [facility]. ASTRID WILL FOLLOW. Addendum: 12/01/21 at 0913 by Shira Carranza CM DC PLANNING: ASTRID MET WITH THE PATIENTS DAUGHTERS MARGUERITE AND HIS YESTERDAY TO DISCUSS POST DISCHARGE CARE. THE PATIENT IS IN THE PROCESS OF BEING SET UP FOR DIALYSIS, BARRIER OF TRANSPORT TO HD CENTER PATIENT HAS RESTRICTED M/FCO AND FAMILY WORKS. [facility] IS ABLE TO TRANSPORT THE PATIENT IF HE HAS A CHAIR TIME OF 2:30 PM TO 3:00. ALSO DISCUSSED PATIENTS RIGHT TO REFUSE DIALYSIS WHICH FAMILY ANTICIPATES HE WILL DO ONCE HE IS DISCHARGED. ASTRID SPOKE WITH LINDA AT [facility] ([phone]), [facility]:15-6:00 PM SLOT OPEN. ALSO SPOKE WITH [facility] AND FAXED THEM THE CLINICAL PACKET, THEY HAVE CHAIR TIMES OF 1:30-2:00 PM OPEN. ASTRID WILL SPEAK WITH FAMILY REGARDING CHOICES AND WILL THEN PROCEED WITH FINALIZING DIALYSIS ARRANGEMENTS. ASTRID WILL FOLLOW. Addendum: 12/01/21 at 1246 by Shira Carranza CM DC PLANNING: PATIENT ACCEPTED TO [facility], , SAT AT 3:00 PM. CM SPOKE WITH THE PATIENTS DAUGHTER BRYAN ([phone]) AND GAVE HER THE ADDRESS AND PHONE NUMBER. FAMILY IN AGREEMENT WITH HD CENTER AND TIME AND WILL PROVIDE TRANSPORT. CM WILL FOLLOW.
[2021-11-30 12:00] VITALS: BP 180/60
[2021-11-30 16:00] VITALS: BP 163/60
--- NOTE | 2021-11-30 17:11 | NUR ---
PTS DC ON HOLD - PENDING HEPATITIS PANEL PRIOR TO SETTING UP O/P DIALYSIS. FAMILY MADE AWARE.
--- NOTE | 2021-11-30 17:15 | NUR ---
TRANSFERRED TO A [facility] PT.
--- NOTE | 2021-11-30 19:00 | NUR ---
RECEIVED ENDORSEMENT FROM DEMIAN SALAS FOR CONTINUITY OF CARE. PATIENT IS STABLE.
[2021-11-30 20:00] VITALS: BP 157/65
--- NOTE | 2021-11-30 20:00 | NUR ---
PATIENT IS AWAKE AND STABLE. A&OX2. RE-ORIENTED TO PLACE AND TIME. TURKISH SPEAKING ONLY. DENIES PAIN. ON ROOM AIR WITH NO APPARENT S/SX OF ACUTE DISTRESS. PATIENT IS ON BEDREST AND INCONTINENT. PATIENT UTILIZES PULL-UPS FOR VOID AND BM. PATIENT HAS HD ACCESS TO [facility] AND [facility]. BEDSIDE TRAY CLEARED. POC AND WHITE COMMUNICATION BOARD UPDATED. ALL SAFETY MEASURES IN PLACE. CALL LIGHT WITHIN REACH. WILL CONTINUE TO MONITOR.
--- NOTE | 2021-11-30 21:00 | NUR ---
ADMINISTERED SCHEDULED MEDICATION PER MD ORDER. TOLERATED WELL. NADR. DENIES PAIN. RESPIRATIONS EVEN AND UNLABORED WITH NO APPARENT S/SX OF ACUTE DISTRESS. SNACKS PROVIDED. WHITE COMMUNICATION BOARD UPDATED. ALL SAFETY MEASURES IN PLACE. CALL LIGHT WITHIN REACH. WILL CONTINUE TO MONITOR.
--- NOTE | 2021-11-30 23:00 | NUR ---
PATIENT IS STABLE AND AWAKE. DENIES PAIN. RESPIRATIONS EVEN AND UNLABORED WITH NO APPARENT S/SX OF ACUTE DISTRESS. WHITE COMMUNICATION BOARD UPDATED. ALL SAFETY MEASURES IN PLACE. CALL LIGHT WITHIN REACH. WILL CONTINUE TO MONITOR.
--- NOTE | 2021-12-01 01:00 | NUR ---
CHECKED PATIENT. STABLE AND ASLEEP. CHEST IS RISING AND FALLING EVENLY. RESPIRATIONS EVEN AND UNLABORED WITH NO APPARENT S/SX OF ACUTE DISTRESS. WHITE COMMUNICATION BOARD UPDATED. ALL SAFETY MEASURES IN PLACE. CALL LIGHT WITHIN REACH. WILL CONTINUE TO MONITOR.
--- NOTE | 2021-12-01 03:00 | NUR ---
CHANGED AND CLEANED PATIENT. TOLERATED WELL. DENIES PAIN. RESPIRATIONS EVEN AND UNLABORED WITH NO APPARENT S/SX OF ACUTE DISTRESS. WHITE COMMUNICATION BOARD UPDATED. ALL SAFETY MEASURES IN PLACE. CALL LIGHT WITHIN REACH. WILL CONTINUE TO MONITOR.
[2021-12-01 04:00] VITALS: BP 148/71
--- NOTE | 2021-12-01 05:50 | NUR ---
PATIENT MOVED TO ROOM 127-A. PATIENT IS STABLE.
[2021-12-01] MEDS: BLOOD GLUCOSE MONITORING 1 DEV DEV FS SCH ×3 (06:30→17:22)
[2021-12-01 07:12] LABS: BASOPHILS % (AUTO) 0.7 % (0.0-2.0); EOSINOPHILS # (AUTO) 0.1 K/uL (0-0.4); EOSINOPHILS % (AUTO) 0.9 % (0.0-4.0); HEMATOCRIT 23.6 % (36-52); HEMOGLOBIN 8.2 g/dL (12.0-18.0); LYMPHOCYTES % (AUTO) 14.3 % (20.5-51.1); MEAN CORPUSCULAR HEMOGLOBIN 29 pg (27-31); MEAN CORPUSCULAR HGB CONC 35 g/dL (33-37); MEAN CORPUSCULAR VOLUME 84.8 fL (80-94); MONOCYTES % (AUTO) 14.2 % (1.7-9.3); NEUTROPHILS # (AUTO) 5.1 K/uL (1.8-7.7); NEUTROPHILS % (AUTO) 69.9 % (42.2-75.2); PLATELET COUNT (AUTO) 138 K/uL (140-450); RED BLOOD CELL COUNT(AUTO) 2.79 MIL/uL (4.20-6.10); RED CELL DISTRIBUTION WIDTH 13.3 % (11.6-13.7); WHITE BLOOD COUNT (AUTO) 7.2 K/uL (4.8-10.8)
--- NOTE | 2021-12-01 07:20 | NUR ---
ENDORSED PATIENT TO TJ RN FOR CONTINUITY OF CARE. PATIENT IS STABLE.
[2021-12-01 07:31] LABS: ANION GAP 11.3 (8-16); CARBON DIOXIDE 29.5 mmol/L (21-32); POTASSIUM 3.8 mmol/L (3.5-5.1)
[2021-12-01 07:48] LABS: CREATININE 6.3 mg/dL (0.6-1.3)
--- NOTE | 2021-12-01 08:00 | NUR ---
RECEIVED REPORT FROM [employer]. PT A/O X2. NO SOB OR RESPIRATORY DISTRESS. RR EVEN & UNLABORED. L AV SHUNT WITH POSITIVE BRUIT AND THRILL. ALL NEEDS MET AT THIS TIME. DENIES PAIN. SAFETY MEASURES IN PLACE. WILL MONITOR CLOSELY.
[2021-12-01 08:08] LABS: HEPATITIS A ANTIBODY IGM Negative (Negative); HEPATITIS B CORE AB TOTAL Negative (Negative); HEPATITIS B SURFACE ANTIBODY Reactive (.); HEPATITIS B SURFACE ANTIGEN Negative (Negative)
[2021-12-01] MEDS: TAMSULOSIN 0.4 MG CAP PO SCH (09:54)
[2021-12-01] MEDS: ATORVASTATIN 80 MG TAB PO SCH (09:54)
[2021-12-01] MEDS: FINASTERIDE 5 MG TAB PO SCH (09:55)
[2021-12-01] MEDS: ASPIRIN 81 MG TAB.CHEW PO SCH (09:55)
[2021-12-01] MEDS: amLODIPine 5 MG TAB PO SCH (09:55)
[2021-12-01] MEDS: LACTOBACILLUS RHAMNOSUS GG 1 EACH CAP PO SCH (09:56)
--- NOTE | 2021-12-01 10:00 | NUR ---
PT REPOSITIONED. ESTONIAN SPEAKING ONLY. PT STABLE. NEEDS ALL MET AT THIS TIME. SAFETY MEASURES IN PLACE. WILL MONITOR CLOSELY.
[2021-12-01] MEDS: INSULIN LISPRO SLIDING SCALE 100 UNITS/ML VIAL SUBQ PRN ×2 (11:26→17:23)
--- NOTE | 2021-12-01 12:00 | NUR ---
PT RESTING WITH EYES CLOSED. RR EVEN & UNLABORED. NO DISTRESS. SAFE PRECAUTIONS IN PLACE. WILL MONITOR CLOSELY.
[2021-12-01 18:00] VITALS: BP 121/54
--- NOTE | 2021-12-01 18:38 | NUR ---
DISCHARGE INSTRUCTIONS GIVEN TO SORIN (DAUGHTER) VIA TELEPHONE WHILE TRANSLATING TO AT BEDSIDE. IV DISCONTINUED. NO ACTIVE BLEEDING. TRANSPORTED BY AND SHADE BANDER VIA WHEELCHAIR.
[2021-12-02] MEDS ORDERED: EPOETIN ALFA-EPBX 10,000 UNITS/ML VIAL IV SCH (09:00)
== END 2021-12-01 18:40 | disposition home or self-care (01) | DRG 52 ==
LOC: MED 17:21 → MTU 20:19 → MMU 12-01 05:43
PROVIDERS: ADMIT General Practice; ATTEND General Practice
PROC: 5A1D70Z Performance of Urinary Filtration, Intermittent, Less than 6 Hours Per Day (ICD-10-PCS; 2021-11-27)
PROC: 02PYX3Z Removal of Infusion Device from Great Vessel, External Approach (ICD-10-PCS; principal; 2021-11-28)
PROC: 5A1D70Z Performance of Urinary Filtration, Intermittent, Less than 6 Hours Per Day (ICD-10-PCS; 2021-11-28)
PROC: 5A1D70Z Performance of Urinary Filtration, Intermittent, Less than 6 Hours Per Day (ICD-10-PCS; 2021-11-30)
DX: G93.41 Metabolic encephalopathy (principal); N17.0 Acute kidney failure with tubular necrosis; I21.A1 Myocardial infarction type 2; E44.0 Moderate protein-calorie malnutrition; I12.0 Hypertensive chronic kidney disease with stage 5 chronic kidney disease or end stage renal disease; D63.8 Anemia in other chronic diseases classified elsewhere; N18.6 End stage renal disease; Z20.822 Contact with and (suspected) exposure to COVID-19; N39.0 Urinary tract infection, site not specified; E87.5 Hyperkalemia; E11.22 Type 2 diabetes mellitus with diabetic chronic kidney disease; Z91.19 Patient's noncompliance with other medical treatment and regimen; Z68.23 Body mass index [BMI] 23.0-23.9, adult
CPT/HCPCS: 36415; 70450; 71045; 80048; 80053; 80076; 80305; 81001; 82140; 82728; 82948; 83036; 83540; 83690; 83735; 84100; 84484; 85025; 86704; 86706; 86708; 86709; 86803; 87081; 87086; 87340; 93005; 96374; 96375; 97110; 97112; 97163-GP; 97530; 99285; G0480; G0482; J0610; J0696; J1644; J1815; J7060; Q0092; Q5106; U0003

== ENCOUNTER 2022-02-04 15:48 | Inpatient (IN) | payer MEDICAID ==
[~2022-02-04] VITALS: Ht 167.6 cm; Wt 53.5 kg
[~2022-02-04 15:48] MED LIST changes: -CIPR500T4 PO; +SULF-59 PO
[2022-02-04 16:09] VITALS: BP 170/74
--- NOTE | 2022-02-04 16:16 | NUR ---
:JULIANNE [phone] DAUGHTER :KELTON [phone]
--- NOTE | 2022-02-04 16:16 | NUR ---
WAIT AT LOBBY.
--- NOTE | 2022-02-04 16:50 | NUR ---
PT W/C ASSISTED TO ER BED 8
--- NOTE | 2022-02-04 17:37 | NUR ---
CALLED DAUGHTER REGARDING PT CARE STATED THAT PT WAS A/OX4, ASKED ABOUT SCROTAL ULCER STATED THAT ITS BEEN A WEEK AND THAT HE MISSED DIALYSIS TODAY
--- NOTE | 2022-02-04 18:01 | NUR ---
EDEN RAWLS AT BEDSIDE TO CLOSER EXAMINE ULCER
--- NOTE | 2022-02-04 18:15 | NUR ---
EDEN RAWLS SPEAKING TO JULIANNE THROUGH THE PHONE REGARDING PT CONDITION
--- NOTE | 2022-02-04 18:28 | NUR ---
PT ATTEMPTED TO URINATE, NO URINE NOTED
--- NOTE | 2022-02-04 18:29 | NUR ---
ULTRASOUND AT BEDSIDE
[2022-02-04] MEDS ORDERED: HYDROcodone/APAP 5/325 MG 1 TAB TAB PO ONE (18:40)
--- NOTE | 2022-02-04 19:09 | NUR ---
LAB AT BEDSIDE
--- NOTE | 2022-02-04 19:34 | NUR ---
Pt report given to NIRANJAN REDMOND. Transfer of care at this time.
[2022-02-04 19:44] LABS: BASOPHILS % (AUTO) 0.6 % (0.0-2.0); EOSINOPHILS # (AUTO) 0.1 K/uL (0-0.4); EOSINOPHILS % (AUTO) 3.4 % (0.0-4.0); HEMATOCRIT 25.1 % (36-52); HEMOGLOBIN 8.4 g/dL (12.0-18.0); LYMPHOCYTES % (AUTO) 23.5 % (20.5-51.1); MEAN CORPUSCULAR HEMOGLOBIN 29 pg (27-31); MEAN CORPUSCULAR HGB CONC 33 g/dL (33-37); MEAN CORPUSCULAR VOLUME 88.2 fL (80-94); MONOCYTES # (AUTO) 0.4 K/uL (0.8-1.0); MONOCYTES % (AUTO) 8.3 % (1.7-9.3); NEUTROPHILS # (AUTO) 2.8 K/uL (1.8-7.7); NEUTROPHILS % (AUTO) 64.2 % (42.2-75.2); PLATELET COUNT (AUTO) 145 K/uL (140-450); RED BLOOD CELL COUNT(AUTO) 2.85 MIL/uL (4.20-6.10); RED CELL DISTRIBUTION WIDTH 15.3 % (11.6-13.7); WHITE BLOOD COUNT (AUTO) 4.4 K/uL (4.8-10.8)
[2022-02-04 20:11] LABS: ALBUMIN 3.3 g/dL (3.4-5.0); ANION GAP 20.8 (8-16); CARBON DIOXIDE 20.7 mmol/L (21-32); POTASSIUM 4.5 mmol/L (3.5-5.1); TOTAL BILIRUBIN 0.5 mg/dL (0.0-1.0)
--- NOTE | 2022-02-04 20:28 | NUR ---
SWABS AND URINE TAKEN TO LAB
--- NOTE | 2022-02-04 20:29 | NUR ---
NEW SHEETS PROVIDED DUE TO URINE ACCIDENT
[2022-02-04 20:51] LABS: BILIRUBIN,URINE NEGATIVE (NEGATIVE); BLOOD, URINE 2+ (NEGATIVE); COLOR,URINE YELLOW (YELLOW); LEUKOCYTE ESTERASE ,URINE 3+ (NEGATIVE); NITRITE, URINE NEGATIVE (NEGATIVE); UGLUCOSE 2+ (NEGATIVE)
[2022-02-04 21:29] LABS: APPEARANCE,URINE CLOUDY (CLEAR); WBC,URINE TOO MANY TO COUNT /HPF (0-5)
--- NOTE | 2022-02-04 22:23 | NUR ---
CALLED AND DAUGHTER DEBORAH TO CONFIRM MED REC
[2022-02-04] MEDS ORDERED: DOCUSATE SODIUM 100 MG GELCAP PO PRN (22:35)
[2022-02-04] MEDS ORDERED: ZOLPIDEM 5 MG TAB PO PRN (22:35)
[2022-02-04] MEDS ORDERED: ACETAMINOPHEN 325 MG TAB PO PRN (22:35)
[2022-02-04] MEDS ORDERED: ONDANSETRON 4 MG/2 ML VIAL IM/IVP PRN (22:35)
[2022-02-04] MEDS ORDERED: POTASSIUM CHLORIDE 10 MEQ TABER PO PRN (22:35)
[2022-02-04] MEDS ORDERED: HYDROcodone/APAP 7.5/325 MG 1 TAB PO PRN (22:35)
[2022-02-04] MEDS ORDERED: guaiFENesin DM 200/20 MG-10 ML 10 ML UDC PO PRN (22:35)
[2022-02-04] MEDS ORDERED: TRA200 PO (22:39)
[2022-02-04] MEDS ORDERED: hydrALAZINE 20 MG/ML VIAL IVP PRN (22:40)
[2022-02-04] MEDS ORDERED: DEXTROSE 50% 50 ML SYR IVP PRN (22:45)
[2022-02-04] MEDS ORDERED: CINA30TA4 PO (22:47)
[2022-02-04] MEDS ORDERED: FURO-572 PO (22:47)
[2022-02-04] MEDS ORDERED: INSU100S22 SUBQ (22:47)
--- NOTE | 2022-02-04 23:00 | NUR ---
Patient will be admitted to care of . Admited to tele . Will go to room 116 Belongings list completed. Report MECHELLE.
[2022-02-04 23:06] LABS: PROTHROMBIN TIME 10.7 secs (10.8-13.4)
[2022-02-04 23:11] LABS: CHOL/HDL RATIO 2.4 (1-4.5); FREE T4 (FREE THYROXINE) 0.81 ng/dL (0.76-1.46); MAGNESIUM 2.7 mg/dL (1.8-2.4); PHOSPHORUS 7.6 mg/dL (2.5-4.9); THYROID STIMULATING HORMONE 1.92 uIU/mL (0.34-3.74)
--- NOTE | 2022-02-04 23:15 | NUR ---
RECEIVED PATIENT FROM ER NURSE MICHAEL, PATIENT IS ALERT ORIENTED X 2, NO ANY COMPLAIN OF SHORTNESS OF BREATH, VITAL SIGN IS WITHIN THE NORMAL RANGE , CALL LIGHT IS WITHIN THE REACH, WILL CONTINUE TO MONITOR PATIENT.
[2022-02-04 23:20] VITALS: BP 137/76
--- NOTE | 2022-02-04 23:20 | NUR ---
DOCTOR OTONIEL GOODEN CALL AND PLACE ORDER TO CALL DOCTOR JAVED AND INSERT NEW FOLY S CATHETER, ALSO DR FREDERICK TOLD TO CALL RELIGIOUS EDUCATION DIRECTOR MASONRY SUPERVISOR AND LET THEM KNOW THAT ABI PATIENT NEEDED URGENT DIALYSIS OR NOT .WILL FOLLOW DOCTOR ORDER.
--- NOTE | 2022-02-05 | NUR ---
WE TRIED TO INSERT NO 16 POTTER S CATHETER, PATIENT IS START HAVING LOTS OF PAIN AND SOME RESISTANCE CAME . SO CALL DOCTOR TEGAN TO INSERT NEW POTTER CATHETER, WILL CONTINUE TO MONITOR PATIENT
--- NOTE | 2022-02-05 00:17 | NUR ---
CALL DOCTOR LOUIE EXCHANGE NUB TO PAGE OFFICE MACHINES WIRER ABOUT DR FREDERICK MASSAGE THAT IF SUPERVISOR CARTON AND CAN SUPPLY DR OFFICE MACHINES WIRER CAN SEE IF PATIENT NEEDS URGENT DIALYSIS OR NOT, , SOMEONE SAID DR VELARDE IS SUPERVISOR CARTON AND CAN SUPPLY AND IM PAGING DR VELARDE NOW , SHE GOT FACILITY CALL BACK NUMBER , WAITING FOR MD RESPONSE, WILL CONTINUE TO MONITOR PATIENT.
--- NOTE | 2022-02-05 00:18 | NUR ---
NOTIFIED DOCTOR FREDERICK THAT WE TRY TO PUT POTTER S CATHETER AND BECAUSE PATIENT IS COMPLAINING OF PAIN AND RESISTANCE WE ARE UNABLE TO PUT IT ON DOCTOR FREDERICK REPLY WITH IF VITAL SIGN IS STABLE DONT NEED TO CALL FOR NOW BY THE TIME DOCTOR JAVED WAS HERE AND I NOTIFIED DOCTOR FREDERICK MASSAGE , DOCTOR JAVED INSERTED 16 GE[place]GIAN POTTER S CATHETER. MESSAGE DOCTOR FREDERICK TO THAT DOCTOR JAVED CAME AND INSERTED NE POTTER S CATHETER AND WE GOT 900 ML URINE OUTPUT. WAITING FOR DOCTOR FURTHER ORDER , WILL CONTINUE TO MONITOR PATIENT.
--- NOTE | 2022-02-05 01:30 | NUR ---
NOTICED THAT PATIENT URINE IS COMING BRIGHT RED 10 CC , WILL CONTINUE TO MONITOR FOR HEMATURIA, CALL LIGHT IS WITHIN THE REACH ,WILL MONITOR THE PATIENT ,
[2022-02-05] MEDS ORDERED: cefTRIAXone 1,000 MG VIAL ONE (02:09)
[2022-02-05 04:00] VITALS: BP 166/77
--- NOTE | 2022-02-05 05:25 | NUR ---
PATIENT BLOOD PRESSURE IS 166/75 , HI;103 PRN IV HYDRALAZINE 10 MG 0.5ML GIVEN PER DOCTOR ORDER,WILL REASSESS BLOOD PRESSURE , WILL CONTINUE TO MONITOR PATIENT
--- NOTE | 2022-02-05 06:19 | NUR ---
The patient's care was reviewed and supervised by Gabyb Gould RN. Chart checked.
--- NOTE | 2022-02-05 06:30 | NUR ---
RE ASSESS PATIENT BLOOD PRESSURE IN 1 HRS BP: 176/57 HR 89, MASSAGE DOCTOR OTONIEL ABOUT BP , WAITING FOR DOCTOR RESPONSE, CALL LIGHT IS WITHIN THE REACH ,WILL CONTINUE TO MONITOR PATIENT.
[2022-02-05] MEDS: BLOOD GLUCOSE MONITORING 1 DEV DEV FS SCH ×4 (06:31→21:42)
[2022-02-05 06:40] LABS: BASOPHILS % (AUTO) 0.5 % (0.0-2.0); EOSINOPHILS % (AUTO) 0.4 % (0.0-4.0); HEMATOCRIT 28.1 % (36-52); HEMOGLOBIN 9.3 g/dL (12.0-18.0); LYMPHOCYTES # (AUTO) 0.5 K/uL (2.0-11.5); LYMPHOCYTES % (AUTO) 6.6 % (20.5-51.1); MEAN CORPUSCULAR HEMOGLOBIN 29 pg (27-31); MEAN CORPUSCULAR HGB CONC 33 g/dL (33-37); MEAN CORPUSCULAR VOLUME 88.2 fL (80-94); MONOCYTES # (AUTO) 0.3 K/uL (0.8-1.0); MONOCYTES % (AUTO) 4.4 % (1.7-9.3); NEUTROPHILS # (AUTO) 6.2 K/uL (1.8-7.7); NEUTROPHILS % (AUTO) 88.1 % (42.2-75.2); PLATELET COUNT (AUTO) 169 K/uL (140-450); RED BLOOD CELL COUNT(AUTO) 3.19 MIL/uL (4.20-6.10); RED CELL DISTRIBUTION WIDTH 15.4 % (11.6-13.7); WHITE BLOOD COUNT (AUTO) 7.1 K/uL (4.8-10.8)
[2022-02-05 06:44] LABS: ANION GAP 19.2 (8-16); CARBON DIOXIDE 18.8 mmol/L (21-32)
--- NOTE | 2022-02-05 06:47 | NUR ---
GET CRITICAL LAB RESULT OF CREATININE IS 11.5, NOTIFIED DR FREDERICK , WAITING FOR DOCTOR RESPONSE ,WILL CONTINUE TO MONITOR PATIENT,
[2022-02-05 06:48] LABS: CREATININE 11.5 mg/dL (0.6-1.3)
--- NOTE | 2022-02-05 07:30 | NUR ---
RECEIVED REPORT FROM DIRECT MAIL COORDINATOR NURSE.PT IS A&OX3. ON 3L NC. HAS LEFT ARM SHUNT. HAS POTTER CATH. ON FLUID RESTRICTION AT 1500ML/DAY. IV SITE ON R FA, 24G. PT HAS LEFT TESTICULAR ULCER. DISCUSSED PLAN OF CARE.
--- NOTE | 2022-02-05 07:49 | NUR ---
GAVE REPORT TO MORNING NURSE JF FOR CONTINUOS OF CARE, PATIENT IS SABLE.
[2022-02-05 08:00] VITALS: BP_SYST 130; BP_SYST 176; BP_DIAS 57; BP_DIAS 60
--- NOTE | 2022-02-05 08:25 | NUR ---
DR. VELARDE ORDERED TO DO DIALYSIS FOR PT TODAY, AND TOMORROW, AND GIVE BP MEDS.
[2022-02-05] MEDS: PANTOPRAZOLE 40 MG TABEC PO SCH (08:58)
[2022-02-05] MEDS: TAMSULOSIN 0.4 MG CAP PO SCH (08:59)
[2022-02-05] MEDS ORDERED: NIFEdipine 30 MG TABER PO SCH (09:00)
[2022-02-05] MEDS: FINASTERIDE 5 MG TAB PO SCH (09:00)
[2022-02-05] MEDS ORDERED: ASPIRIN 81 MG TAB.CHEW PO SCH (09:00)
[2022-02-05] MEDS ORDERED: glipiZIDE ER 5 MG TABER PO SCH (09:00)
[2022-02-05] MEDS ORDERED: amLODIPine 5 MG TAB PO SCH (09:00)
[2022-02-05] MEDS: ATORVASTATIN 80 MG TAB PO SCH (09:01)
--- NOTE | 2022-02-05 10:00 | NUR ---
JOSUE ALVAREZ INSERTED 3-WAY POTTER CATH. WITH CONTINUOUS IRRIGATION OF 3L, PER 'S ORDER.
--- NOTE | 2022-02-05 11:28 | NUR ---
WOUND CARE NOTE: SKIN ASSESSMENT DONE TO THIS 66 Y/O PT. PT. ADMITTED WITH URINARY RETENTION WITH DIFFICULT CATHETER INSERTION AND LEFT TESTICULAR ULCERATION. PT. SEEN BY DR. JAVED WITH #16 FR POTTER CATHETER PLACED AND TESTICULAR ULTRASOUND DONE. PT. ABLE TO TURN AND REPOSITION, FOLLOW SIMPLE DIRECTIONS. POC DISCUSSED WITH CHARGE NURSE. -LEFT TESTICULAR ULCERATION PARTIAL THICKNESS SKIN LOSS,2X1X0.3CM, WOUND BED 100% DARK RED, SMALL AMOUNT SEROSANGUINEOUS DRAINAGE, NO ODOR, CARLOS WOUND SKIN INTACT, NO ERYTHEMA, NO INDURATION, NORMAL TEMP. RECOMMENDATIONS: -CLEANSE LEFT TESTICULAR WOUND WITH NS, PAT DRY, APPLY SILVASORB GEL AND COVER WITH ISLAND DRESSING EVERYDAY AND PRN IF SOILING
[2022-02-05 12:00] VITALS: BP 129/57
--- NOTE | 2022-02-05 13:19 | NUR ---
PER [facility], PT WILL BE ON MECHANICAL SOFT THIN LIQUID DIET.
--- NOTE | 2022-02-05 13:25 | NUR ---
SHELBY FROM [facility] CALLED, PT BUN IS HIGH-98; CREATININE HIGH-11.5. RELAYED TO DR. FREDERICK.
--- NOTE | 2022-02-05 13:29 | NUR ---
DR. FREDERICK GOT MESSAGE, AND ORDERED TO DO HEMODIALYSIS GARRY. FAXED CONSENT FORM FOR DIALYSIS TO DR. FREDERICK.
[2022-02-05] MEDS: GAUZE TP SCH (13:39)
--- NOTE | 2022-02-05 15:30 | NUR ---
DIALYSIS NURSE CAME, TO DO DIALYSIS WITH PT. PT SIGNED CONSENT FORM PER JOSUE ALVAREZ AND DIALYSIS NURSE. USED MARKETING SALES REPRESENTATIVE FOR PT TO SIGN THE CONSENT FOR DIALYSIS.
[2022-02-05 16:00] VITALS: BP 174/64
--- NOTE | 2022-02-05 18:50 | NUR ---
PER DIALYSIS NURSE, 1.9L FLUIDS DRAINED FROM HEMODIALYSIS.
--- NOTE | 2022-02-05 19:30 | NUR ---
GAVE REPORT TO SHEET METAL ERECTOR NURSE. PT IS STABLE.
--- NOTE | 2022-02-05 19:45 | NUR ---
RECEIVED BEDSIDE ENDORSEMENT FROM AM NURSE. PATIENT IS RESTING COMFORTABLY IN BED. O2 AT 3L NC TOLERATING WELL. NO S/S OF RESPIRATORY DISTRESS. ON [address] FC CONTINOUS IRRIGATION DRAINING BLOODY OUTPUT. NO COMPLAINTS OF PAIN AT THIS TIME. LEFT UPPER ARM AV SHUNT DIALYSIS SITE. SKIN WARM AND DRY TO THE TOUCH. ALL SAFETY PRECAUTIONS ARE IN PLACE. CALL LIGHT WITHIN REACH. WILL CONTINUE TO MONITOR PT.
[2022-02-05 20:00] VITALS: BP 140/68
--- NOTE | 2022-02-05 21:43 | NUR ---
BLOOD SUGAR WAS 97 NO INSULIN COVERAGE NEEDED.
[2022-02-06] VITALS: BP 149/68
--- NOTE | 2022-02-06 03:10 | NUR ---
PATIENT IS SLEEPING. NO SOB NOTED.
[2022-02-06 04:00] VITALS: BP 145/55
[2022-02-06] MEDS: BLOOD GLUCOSE MONITORING 1 DEV DEV FS SCH ×4 (06:46→21:01)
--- NOTE | 2022-02-06 06:48 | NUR ---
BLOOD SUGAR WAS 87, NO INSULIN COVERAGE NEEDED. PATIENT IS AWAKE, ALERT VERBALLY RESPONSIVE. ABLE TO MAKE NEEDS KNOWN.
--- NOTE | 2022-02-06 06:50 | NUR ---
PATIENT WITH BLOODY URINE OUTPUT.
--- NOTE | 2022-02-06 07:11 | NUR ---
PATIENT HAS BEEN SCREENED AND CATEGORIZED MODERATE NUTRITION RISK. PATIENT WILL BE SEEN WITHIN 3-5 DAYS OF ADMISSION. 02/07/22-02/09/22 TARA GAFFNEY MS, RDN
[2022-02-06 07:33] LABS: ANION GAP 14.4 (8-16); CARBON DIOXIDE 26.4 mmol/L (21-32); POTASSIUM 3.8 mmol/L (3.5-5.1)
[2022-02-06 07:35] LABS: CREATININE 6.5 mg/dL (0.6-1.3)
--- NOTE | 2022-02-06 07:35 | NUR ---
BEDSIDE REPORT GIVEN TO AM NURSE FOR CONTINUITY OF CARE. NO SOB .
[2022-02-06 07:36] LABS: BASOPHILS % (AUTO) 0.9 % (0.0-2.0); EOSINOPHILS % (AUTO) 0.7 % (0.0-4.0); HEMATOCRIT 24.4 % (36-52); HEMOGLOBIN 8.2 g/dL (12.0-18.0); LYMPHOCYTES # (AUTO) 0.7 K/uL (2.0-11.5); LYMPHOCYTES % (AUTO) 17.8 % (20.5-51.1); MEAN CORPUSCULAR HEMOGLOBIN 29 pg (27-31); MEAN CORPUSCULAR HGB CONC 34 g/dL (33-37); MEAN CORPUSCULAR VOLUME 86.7 fL (80-94); MONOCYTES # (AUTO) 0.3 K/uL (0.8-1.0); MONOCYTES % (AUTO) 7.6 % (1.7-9.3); NEUTROPHILS # (AUTO) 3.1 K/uL (1.8-7.7); PLATELET COUNT (AUTO) 150 K/uL (140-450); RED BLOOD CELL COUNT(AUTO) 2.81 MIL/uL (4.20-6.10); RED CELL DISTRIBUTION WIDTH 15.1 % (11.6-13.7); WHITE BLOOD COUNT (AUTO) 4.2 K/uL (4.8-10.8)
--- NOTE | 2022-02-06 07:36 | NUR ---
RECEIVED BEDSIDE REPORT FROM RICE DRIER OPERATOR NURSE, PT SLEEPING, NO DISTRESS NOTED, IV TO R FA24G SL, PATENT INTACT. PT ON ROOM TALAT, NO SOB NOTED. AV FISTULA TO LEFT FA. POTTER CATH WITH CONTINUOUS IRRIGATION IN PLACE, NOTED STILL BLOODY. DRESSING INTACT, INITIAL ASSESSMENT DONE ALL SAFETY PRECAUTION MET, WILL CONTINUE TO MONITOR.
[2022-02-06 08:00] VITALS: BP_SYST 132; BP_SYST 140; BP_DIAS 56; BP_DIAS 68
[2022-02-06 08:08] LABS: T4 (THYROXINE) 6.5 ug/dL (4.5-12.0)
[2022-02-06] MEDS: ATORVASTATIN 80 MG TAB PO SCH (08:45)
[2022-02-06] MEDS: TAMSULOSIN 0.4 MG CAP PO SCH (08:45)
[2022-02-06] MEDS: FINASTERIDE 5 MG TAB PO SCH (08:45)
[2022-02-06] MEDS: PANTOPRAZOLE 40 MG TABEC PO SCH (08:46)
[2022-02-06] MEDS: NIFEdipine 30 MG TABER PO SCH (08:46)
--- NOTE | 2022-02-06 08:46 | NUR ---
DUE MEDICATIONS ADMINISTERD, PT TOLERATED WELL, WILL CONTINUE TO MONITOR.
[2022-02-06] MEDS: INSULIN LISPRO SLIDING SCALE 100 UNITS/ML VIAL SUBQ PRN ×2 (11:43→21:03)
[2022-02-06 12:00] VITALS: BP 128/60
[2022-02-06] MEDS: GAUZE TP SCH (12:21)
--- NOTE | 2022-02-06 12:21 | NUR ---
DIALYSIS STARTED, A P MANAGER AT BEDSIDE, WILL CONTINUE TO MONITOR.
[2022-02-06] MEDS ORDERED: EPOETIN ALFA-EPBX 10,000 UNITS/ML VIAL SUBQ SCH (14:35)
--- NOTE | 2022-02-06 15:50 | NUR ---
HEMODILAYSIS COMPLETED, PT TOLERATED WELL, 1L OUTPUT. WILL CONTINUE TO MONITOR.
[2022-02-06 16:00] VITALS: BP 120/58
--- NOTE | 2022-02-06 19:21 | NUR ---
ENDORSED PT TO SPECIALIZED LANGUAGE INSTRUCTOR NURSE FOR CONTINUOUS OF CARE
--- NOTE | 2022-02-06 19:22 | NUR ---
REPORT WAS GIVEN FROM AM NURSE FOR CONTINUITY OF CARE. PATIENT RESTING COMFORTABLY WITH O2 AT 3L NC SATING 97%.NO ACUTE DISTRESS. ON 3 WAY POTTER CATHETER CONTINOUS IRRIGATION. URINE OUTPUT CLEAR. NO COMPLAINTS OF PAIN. SAFETY MEASURES IN PLACE. CALL LIGHT WITHIN REACH. WILL CONTINUE TO MONITOR PT.
[2022-02-06 20:00] VITALS: BP 99/48
--- NOTE | 2022-02-06 21:01 | NUR ---
BLOOD SUGAR WAS 199, HUMALOG INSULIN ADMINISTERED ORDERED PER SLIDING SCALE.
[2022-02-07] VITALS: BP 112/52
--- NOTE | 2022-02-07 01:18 | NUR ---
PATIENT CLEANED AND CHANGED. PT STABLE.
--- NOTE | 2022-02-07 02:41 | NUR ---
IV INFILTRATED. INSERTED A NEW PERIPHERAL IV ON THE RIGHT FOREARM, TOLERATED WELL.
[2022-02-07 04:00] VITALS: BP 110/49
[2022-02-07] MEDS: BLOOD GLUCOSE MONITORING 1 DEV DEV FS SCH ×2 (06:36→11:53)
--- NOTE | 2022-02-07 06:37 | NUR ---
BLOOD SUGAR WAS 123, NO INSULIN COVERAGE NEEDED.
--- NOTE | 2022-02-07 07:00 | NUR ---
RECEIVED REPORT FROM COAL CRUSHER OPERATOR NURSE FOR CONTINUITY OF CARE. PT AWAKE IN BED, URDU SPEAKING. BREATHING SYMMETRICAL ON 3L NC. NO C/O PAIN AT THIS TIME. WITH EMILY AV SHUNT, NO BLEEDING NOTED. POTTER CATHETER INTACT AND PATENT DRAINING CLEAR URINE AT THIS TIME WITH BLADDER IRRIGATION IN PLACE. RFA 22G ON SALINE LOCK. CALL LIGHT WITHIN REACH. BED ALARM ACTIVATED, ALL SAFETY MEASURES IN PLACE.
--- NOTE | 2022-02-07 07:05 | NUR ---
BEDSIDE REPORT GIVEN TO AM NURSE FOR CONTINUITY OF CARE. PATIENT STABLE.
[2022-02-07 07:10] LABS: BASOPHILS % (AUTO) 0.5 % (0.0-2.0); EOSINOPHILS # (AUTO) 0.1 K/uL (0-0.4); EOSINOPHILS % (AUTO) 3.1 % (0.0-4.0); HEMATOCRIT 24.9 % (36-52); HEMOGLOBIN 8.3 g/dL (12.0-18.0); LYMPHOCYTES # (AUTO) 0.7 K/uL (2.0-11.5); LYMPHOCYTES % (AUTO) 14.7 % (20.5-51.1); MEAN CORPUSCULAR HEMOGLOBIN 30 pg (27-31); MEAN CORPUSCULAR HGB CONC 34 g/dL (33-37); MEAN CORPUSCULAR VOLUME 87.8 fL (80-94); MONOCYTES # (AUTO) 0.3 K/uL (0.8-1.0); MONOCYTES % (AUTO) 7.1 % (1.7-9.3); NEUTROPHILS # (AUTO) 3.6 K/uL (1.8-7.7); NEUTROPHILS % (AUTO) 74.6 % (42.2-75.2); PLATELET COUNT (AUTO) 144 K/uL (140-450); RED BLOOD CELL COUNT(AUTO) 2.83 MIL/uL (4.20-6.10); RED CELL DISTRIBUTION WIDTH 14.8 % (11.6-13.7); WHITE BLOOD COUNT (AUTO) 4.8 K/uL (4.8-10.8)
[2022-02-07 07:27] LABS: ANION GAP 10.5 (8-16); CARBON DIOXIDE 28.6 mmol/L (21-32); POTASSIUM 4.1 mmol/L (3.5-5.1)
--- NOTE | 2022-02-07 07:36 | NUR ---
RECEIVED CALL FROM LAB REGARDING CREATININE 5.1 AND BUN 31. PT HAS ESRD AND IS ON HEMODIALYSIS Q [id number] Addendum: 02/07/22 at 0745 by Katherine Castro RN VALUES ARE TRENDING DOWN
[2022-02-07 07:37] LABS: CREATININE 5.1 mg/dL (0.6-1.3)
[2022-02-07 08:00] VITALS: BP 146/87
[2022-02-07] MEDS: ATORVASTATIN 80 MG TAB PO SCH (08:32)
[2022-02-07] MEDS: TAMSULOSIN 0.4 MG CAP PO SCH (08:33)
[2022-02-07] MEDS: PANTOPRAZOLE 40 MG TABEC PO SCH (08:33)
[2022-02-07] MEDS: FINASTERIDE 5 MG TAB PO SCH (08:33)
[2022-02-07] MEDS: NIFEdipine 30 MG TABER PO SCH (08:34)
--- NOTE | 2022-02-07 08:37 | NUR ---
SCHEDULED AM MEDICATIONS GIVEN ORDERED. NO C/O PAIN AT THIS TIME. EMILY AV SHUNT WITH (+) BRUIT AND THRILL
[2022-02-07] MEDS ORDERED: NIFE30TA36 PO (11:44)
[2022-02-07] MEDS ORDERED: DOCU-299 PO (11:44)
[2022-02-07] MEDS ORDERED: SULF-58 PO (11:44)
[2022-02-07] MEDS ORDERED: PANT40EC56 PO (11:44)
[2022-02-07 12:00] VITALS: BP 143/47
[2022-02-07] MEDS: INSULIN LISPRO SLIDING SCALE 100 UNITS/ML VIAL SUBQ PRN (12:03)
[2022-02-07] MEDS: GAUZE TP SCH (12:24)
--- NOTE | 2022-02-07 12:24 | NUR ---
PT FOR DISCHARGE, DR MATIAS STATED TO DO VOID TRIAL BEFORE DC. CLARIFIED WITH DR JAVED UROLOGIST HE WAS THE ONE WHO PLACED POTTER CATHETER IN ON 02/05/22. DR JAVED STATED "JUST MAKE SURE YOU DON'T NEED A UROLOGIST TO PUT IT BACK IN" DR MATIAS AT THE UNIT AND DOING ROUNDS AND MADE HER AWARE, PT WAS DIFFICULT TO PLACE CATHETER IN AND STATED TO DC PT WITH THE POTTER CATHETER. DR JAVED MADE AWARE.
[2022-02-07 12:36] VITALS: BP 146/87
--- NOTE | 2022-02-07 13:00 | NUR ---
CALLED JULIANNE AND MADE AWARE OF PT'S DISCHARGE TODAY. ALSO TO FOLLOW UP OUTPATIENT WITH DR JAVED UROLOGIST, WILL PROVIDE DR JAVED'S OFFICE ADDRESS AND OFFICE NUMBER. PER WILL MANAGER DISASTER RECOVERY PT IN 2 HRS. PT AWARE.
--- NOTE | 2022-02-07 15:14 | NUR ---
PT DISCHARGED TO HOME WITH BELONGINGS, PAPERWORKS AND POTTER CATHETER. IV REMOVED, NO BLEEDING NOTED. EDUCATED JULIANNE ON HOW TO EMPTY POTTER CATHETER AND MAKE OUTPATIENT APPT WITH DR JAVED (UROLOGIST) ALSO EDUCATED ON PO ANTIBIOTIC AND VERBALIZED UNDERSTANDING.
== END 2022-02-07 15:10 | disposition home or self-care (01) | DRG 194 ==
LOC: MED 15:48 → MTU 21:49
PROVIDERS: ADMIT Family Medicine; ATTEND Family Medicine
PROC: 5A1D70Z Performance of Urinary Filtration, Intermittent, Less than 6 Hours Per Day (ICD-10-PCS; principal; 2022-02-05)
PROC: 5A1D70Z Performance of Urinary Filtration, Intermittent, Less than 6 Hours Per Day (ICD-10-PCS; 2022-02-06)
PROC: 0T9B70Z Drainage of Bladder with Drainage Device, Via Natural or Artificial Opening (ICD-10-PCS; 2022-02-06)
DX: I13.2 Hypertensive heart and chronic kidney disease with heart failure and with stage 5 chronic kidney disease, or end stage renal disease (principal); G93.41 Metabolic encephalopathy; N18.6 End stage renal disease; E44.1 Mild protein-calorie malnutrition; D63.8 Anemia in other chronic diseases classified elsewhere; N13.8 Other obstructive and reflux uropathy; E11.22 Type 2 diabetes mellitus with diabetic chronic kidney disease; N39.0 Urinary tract infection, site not specified; I50.43 Acute on chronic combined systolic (congestive) and diastolic (congestive) heart failure; R32 Unspecified urinary incontinence; E78.5 Hyperlipidemia, unspecified; Z20.822 Contact with and (suspected) exposure to COVID-19; N40.1 Benign prostatic hyperplasia with lower urinary tract symptoms; I16.1 Hypertensive emergency; N50.89 Other specified disorders of the male genital organs; Z99.2 Dependence on renal dialysis; Z68.1 Body mass index [BMI] 19.9 or less, adult
CPT/HCPCS: 36415; 71045; 76770; 76870; 80048; 80053; 81001; 82150; 82948; 83036; 83690; 83735; 83880; 84100; 84436; 84439; 84443; 84479; 85025; 85610; 85730; 87081; 87086; 97116; 97163-GP; 99285; J0360; J0696; J7060; Q0092; Q5106

== ENCOUNTER 2022-06-02 20:11 | Emergency (ER) | payer MEDICAID ==
[~2022-06-02] VITALS: Ht 162.6 cm; Wt 52.2 kg
[~2022-06-02 20:11] MED LIST changes: -AMLO10TA89 PO; +CINA30TA4 PO; +DOCU-299 PO; -FLOR250 PO; +FURO-572 PO; -GLIP10TE PO; -HUMSLIDE SUBQ; +INSU100S22 SUBQ; +NIFE30TA36 PO; +PANT40EC56 PO; -PHEN-1901 PO; +SULF-58 PO; -SULF-59 PO; +TRA200 PO
[2022-06-02 21:42] VITALS: BP 111/59
--- NOTE | 2022-06-02 21:53 | NUR ---
TO LOBBY FOLLOWING TRIAGE
--- NOTE | 2022-06-02 23:58 | NUR ---
Called - no show in lobby and outside.
--- NOTE | 2022-06-03 00:30 | NUR ---
PT CALLED, NO ANSWER. LWBS
== END 2022-06-02 23:58 | disposition left against medical advice (07) ==
LOC: MED 20:11
DX: R11.10 Vomiting, unspecified (principal); Z53.21 Procedure and treatment not carried out due to patient leaving prior to being seen by health care provider